=== PATIENT | male | born 1945 | race Caucasian/White ===

== ENCOUNTER → 2024-03-15 09:39 | Outpatient (BNVA) | payer OTHER, SELFPAY | PROVIDERS: PCP Internal Medicine; Visit Provider Internal Medicine ==

== ENCOUNTER 2024-10-22 15:44 | Outpatient (AMB) | payer OTHER, SELFPAY ==
--- NOTE | 2024-10-22 15:46 | AM.OFFVISMDC ---
Intake Vital Signs 10/22/24 16:00 Height 5 ft 6 in Weight 135 lb BMI 21.8 BP 128/78 Blood Pressure Location Rt brachial Position Sitting Pulse 62 Pulse Source Pulse Oximeter Temp 98.7 F Temp Source Temporal Artery Scan Pulse Oximetry (%) 98 Oxygen Delivery Method Room Air Intake Visit Reasons: AWV Intake Note: Usman presents in the office today for his medicare wellness check in. 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 Blood pressure is well controlled. Follows with [facility] GERD: Stable on omeprazole BPH: On flomax 0.8mg daily. Viagra 100mg daily Insomnia: Doing well on prn zolpidem. has advancing dementia. Is feeling down, low motivation and difficulty concentrating at time Macular degeneration-Goes every four weeks for shots Some hearing loss[facility] reviewed Care team reviewed Independent ADLS Positive PHQ9 ROS see HPI PHYSICAL EXAM: GENERAL: Alert and oriented x 3. NAD EYES: EOMI. Anicteric. HENT: Moist mucous membranes. No scleral icterus. No cervical lymphadenopathy. LUNGS: Clear to auscultation bilaterally. CARDIOVASCULAR: Regular rate and rhythm. No murmur. No JVD. ABDOMEN: Soft, non-tender +bs EXTREMITIES: No edema. Non-tender. SKIN: No rashes or lesions. Warm. NEUROLOGIC: No focal neurological deficits. CN II-XII grossly intact PSYCHIATRIC: Cooperative. Appropriate mood and affect [facility] Medical History CAD S/P percutaneous coronary angioplasty Myocardial infarction Sinusitis Stable angina Macular degeneration PUD (peptic ulcer disease) History of BPH GERD (gastroesophageal reflux disease) GIB (gastrointestinal bleeding) Ex-cigarette smoker Diverticulitis of sigmoid colon Coronary atherosclerosis of wrangell coronary artery H/O degenerative disc disease Benign essential hypertension Surgical History H/O tooth extraction Hx of colonoscopy Family History Mother Lung cancer Smoker Father Stroke Smoker Sister Cancer, metastatic Maternal Grandmother Diabetes Social History Housing: House Alcohol intake: never Patient Tobacco Use Status: Former Tobacco user Cigarette Packs Per Day: 1 Years Smoked: 10 e-Cigarette/Vaping Use: Never Used Second Hand Smoke Exposure: No service: Yes Current occupational status: retired Cognitive needs: No Hearing needs: No Vision needs: Yes (macular degeneration) Questionnaire Medicare Wellness Checkup What is your age?: 79 or older What gender do you identify with?: male During the past 4 weeks, how much have you been bothered by emotional problems such as feeling anxious, depressed, irritable, sad or downhearted, and blue?: slightly During the past 4 weeks, has your physical & emotional health limited your social activities with family, friends, neighbors, or groups?: not at all During the past 4 weeks, how much bodily pain have you generally had?: very mild pain During the past 4 weeks, was someone available to help you if you needed & wanted help?: yes, as much as I wanted During the past 4 weeks, what was the hardest physical activity you could do for at least 2 minutes?: moderate Can you get to places out of walking distance without help? (For eg., can you travel alone on buses, taxis or drive your car?): Yes Can you go shopping for groceries or clothes without someone's help?: Yes Can you prepare your own meals?: Yes Can you do your housework without help?: Yes Because of any health problems, do you need the help of another person with your personal care needs such as eating, bathing, dressing or getting around the house?: Yes Can you handle your own money without help?: Yes During the past 4 weeks, how would you rate your health in general?: good During the past 4 weeks how have things been going for you?: good & bad parts about equal Are you having difficulties driving your car?: no Do you always fasten your seat belt when you are in a car?: yes, usually During past 4 weeks, have you been bothered by the following: never: Falling or dizzy when standing up, Trouble eating well? and Problems using the telephone?, sometimes: Teeth or denture problems? and Tiredness or fatigue? and often: Sexual problems? Have you fallen 2 or more times in the past year?: No Are you afraid of falling?: No Are you a smoker?: no During the past 4 weeks, how many drinks of wine, beer, or other alcoholic beverages did you have?: no alcohol at all Do you exercise for about 20 minutes 3 or more times a week?: yes, some of the time Have you been given information to help with the following?: yes: Keeping track of your medications? and no: Hazards in your house that might hurt you? How often do you have trouble taking medicines the way you have been told to take them?: I always take medicine as prescribed How confident are you that you can control & manage most of your health problems?: somewhat confident What is your race?: White Mini Mental State Exam (MMSE) Orientation What is the (year) (season) (date) (day) (month)?: year, season, date, day and month Where are we (state) (county) (town or city) (hospital) (floor)?: state, county, town or city, hospital/clinic and floor Registration Name of 3 unrelated objects clearly and slowly, then ask patient to repeat all 3 of them. (1st repeat determines score. Make sure they can repeat all three): object 1, object 2 and object 3 Attention & Calculation (CHOOSE ONE) Ask pt to begin with 100 & count backward by 7. Stop after 5 repeats. If pt cannot ask them to spell the word WORLD backward.: 93, 86, 79, 72 and 65 Spell WORLD backwards (DLROW): 5 letters Recall Ask patient to repeat the 3 items from question #3.: object 1, object 2 and object 3 Language Show patient a wristwatch & ask what it is. Repeat for pencil.: watch Ask the patient to repeat the phrase 'No ifs, ands, or buts' after you.: correct Ask the patient to 'take a piece of paper with their right hand' 'fold paper in half' 'place paper on floor': take paper in right hand, fold paper in half and place paper on floor Print the sentence 'CLOSE YOUR EYES' on a piece. If patient actually closes eyes then score.: followed written direction Give patient a blank piece of paper & ask to write a sentence. Score if it contains a noun & verb.: sentence contains subject and verb Score Score: 33 Activity of Daily Living Bathing - sponge bath, tub bath or shower: receives no assistance (gets in/out by self, if usual bathing means Dressing - getting clothes from closets & drawers, including inner/outer garments & fasteners.: gets clothes & gets completely dressed without help Toileting - going to the 'toilet room' for urine/bowel elimination & cleaning self/arranging clothes: goes to toilet room, cleans self, arranges clothes without help Transfer: moves in & out of bed and chair without help (may use support object) Continence: controls urination/bowel movements completely by self Feeding: feeds self without help Total Score: 0 Information obtained from: patient Using telephone: independent Traveling: independent Shopping: independent Preparing meals: independent Housework: independent Taking medicine: independent Managing money: independent PHQ-9 Over the last 2 weeks, how often have you been bothered by any of the following problems? 1. Little interest or pleasure in doing things: several days 2. Feeling down, depressed, or hopeless: several days 3. Trouble falling or staying asleep, or sleeping too much: nearly every day 4. Feeling tired or having little energy: several days 5. Poor appetite or overeating: not at all 6. Feeling bad about yourself - or that you are a failure or have let yourself or your family down: not at all 7. Trouble concentrating on things, such as reading the newspaper or watching television: not at all 8. Moving or speaking so slowly that other people could have noticed. Or the opposite - being so fidgety or restless that you have been moving around a lot more than usual: not at all 9. Thoughts that you would be better off or of hurting yourself in some way: not at all Total score: 6 Depression Screening Interpretation: Positive Depression Screening Follow-up: New Medication prescribed Depression Screening Done: Yes 07860 - PHQ-9 Billing: Yes Source: Developed by Drs. Joshua Cheney, Samara Rodrate, Akil Marie and colleagues, with an educational carter from [employer]. Physical Exam Vital Signs: Last Vital Signs Temp 98.7 F 10/22/24 16:00 Pulse 62 10/22/24 16:00 BP 128/78 10/22/24 16:00 Pulse Ox 98 10/22/24 16:00 Oxygen Delivery Method Room Air 10/22/24 16:00 BMI result Body Mass Index 21.8 Assessment & Plan Assessment & Plan (1) Medicare annual wellness visit, subsequent: Code(s): Z00.00 - Encounter for general adult medical examination without abnormal findings (2) Prediabetes: Code(s): R73.03 - Prediabetes (3) CAD S/P percutaneous coronary angioplasty: Code(s): I25.10 - Atherosclerotic heart disease of wrangell coronary artery without angina pectoris; Z98.61 - Coronary angioplasty status (4) Depression: Code(s): F32.A - Depression, unspecified Qualifiers: Depression Type: major depressive disorder Major depression recurrence: recurrent Active/Remission status: currently active Major depression episode severity: mild Qualified Code(s): F33.0 - Major depressive disorder, recurrent, mild Plan MWV Interval history reviewed Independent +depression. Start wellbutrin 150mg daily. Continue medicine prn sleep Orders: Orders Comprehensive Met. Panel Today F41.9 - Anxiety disorder, unspecified, I25.10 - Atherosclerotic heart disease of wrangell coronary artery without angina pectoris, R73.03 - Prediabetes, Z12.5 - Encounter for screening for malignant neoplasm of prostate, Z98.61 - Coronary angioplasty status Vitamin B12 and Folate Today F41.9 - Anxiety disorder, unspecified, I25.10 - Atherosclerotic heart disease of wrangell coronary artery without angina pectoris, R73.03 - Prediabetes, Z12.5 - Encounter for screening for malignant neoplasm of prostate, Z98.61 - Coronary angioplasty status Hemoglobin A1c Today R73.03 - Prediabetes TSH reflex Free T4 Today R53.83 - Other fatigue LDL Cholesterol Direct Today I25.10 - Atherosclerotic heart disease of wrangell coronary artery without angina pectoris, Z98.61 - Coronary angioplasty status Medications: New bupropion HCl XL (Wellbutrin XL) 150 mg PO QAM 90 tabs 3RF Quality Reporting (2019) Depression/Bipolar (159/160/161/177) PHQ-9: Total score: 6 Coding Level of Care Code Medicare Subsequent (G0439) Diagnoses Medicare annual wellness visit, subsequent Z00.00 Prediabetes R73.03 CAD S/P percutaneous coronary angioplasty I25.10; Z98.61 Mild episode of recurrent major depressive disorder F33.0 Depression Type: major depressive disorder Major depression recurrence: recurrent Active/Remission status: currently active Major depression episode severity: mild Additional Codes PHQ-9 - 26976 - PHQ-9 Billing: Yes ([id number]) Advance Care Planning Advance Care Planning discussion: Declined forms Forms completed: None
[2024-10-22 16:00] VITALS: BP 128/78; PULSE 62; TEMP 37.1; O2SAT 98; BMI 21.8
== END 2024-10-22 16:35 | disposition home or self-care (01) ==
PROVIDERS: PCP Internal Medicine; Visit Provider Internal Medicine
DX: Z00.00 Encounter for general adult medical examination without abnormal findings (principal); R73.03 Prediabetes; I25.10 Atherosclerotic heart disease of native coronary artery without angina pectoris; Z98.61 Coronary angioplasty status; F33.0 Major depressive disorder, recurrent, mild

== ENCOUNTER → 2024-10-22 15:44 | Outpatient (BNVA) | payer OTHER, SELFPAY | PROVIDERS: PCP Internal Medicine; Visit Provider Internal Medicine | DX: Z00.00 Encounter for general adult medical examination without abnormal findings (principal); I25.10 Atherosclerotic heart disease of native coronary artery without angina pectoris; F33.0 Major depressive disorder, recurrent, mild; R73.03 Prediabetes; Z98.61 Coronary angioplasty status | CPT/HCPCS: 96127 ==

== ENCOUNTER 2024-10-23 08:05 | Outpatient (REF) | payer OTHER, SELFPAY ==
[2024-10-23 11:48] LABS: Estimated Average Glucose 114 mg/dL; Hemoglobin A1C 140.6465 umol/L; Hemoglobin A1c % 5.6 % (<6.0)
[2024-10-23 11:55] LABS: Alanine Aminotransferase 28 U/L (0-40); Albumin Level 4.1 g/dL (3.5-5.0); Alkaline Phosphatase 81 U/L (39-117); Anion Gap 10 (12-20); Aspartate Amino Transferase 36 U/L (5-37); Bilirubin Total 0.7 mg/dL (0.0-1.0); Blood Urea Nitrogen 32 mg/dL (9-16); Calcium 9.2 mg/dL (8.4-10.2); Carbon Dioxide 26 mmol/L (22-29); Chloride 109 mmol/L (96-108); Estimated Glomerular Filt Rate 46; Glucose Random 90 mg/dL (60-115); Sodium 141 mmol/L (135-145); Total Protein 6.7 g/dL (6.5-8.0)
[2024-10-23 12:14] LABS: TSH reflex Free T4 0.66 uIU/mL (0.32-4.0)
[2024-10-23 12:20] LABS: Folate 14.2 ng/mL (> or = 4.0); Vitamin B12 624 pg/mL (200-900)
[2024-10-24 08:14] LABS: LDL Cholesterol Direct 71 mg/dL (<100)
== END 2024-10-23 08:06 | disposition home or self-care (01) ==
LOC: HO.WFDLDS 08:05
PROVIDERS: Visit Provider Internal Medicine
DX: R73.03 Prediabetes (principal); F41.9 Anxiety disorder, unspecified; Z12.5 Encounter for screening for malignant neoplasm of prostate; I25.10 Atherosclerotic heart disease of native coronary artery without angina pectoris; Z98.61 Coronary angioplasty status; R53.83 Other fatigue
CPT/HCPCS: 36415; 80053; 82607; 82746; 83036; 83721; 84443

== ENCOUNTER 2025-01-06 13:33 | Outpatient (AMB) | payer OTHER, SELFPAY ==
--- OUTSIDE RECORDS SUMMARY | 2024-12-13 08:21 | XMS_ITS | Continuity of Care Document ---
Author Name [facility] Organization [facility] Care Team Providers Care Child Care Center Administrator Name Role Phone [facility] Unavailable Unavailable Problems Combined list of problems from Department of Defense and Veterans Affairs facilities. It does not include entries that were removed or entered in error. Problem Status Onset Date Problem Type Date of Resolution Comments Source Cervicalgia Active Condition [facility] Chronic kidney disease stage 3 Active Condition [facility] Coronary arteriosclerosis Active Condition [facility] Diaphragmatic hernia Active Condition [facility] Diverticulosis of colon without diverticulitis Active Condition [facility]rectile dysfunction Active [facility] Gastroesophageal reflux disease Active Condition [facility] Hyperlipidemia Active [facility] Hypertension Active Condition [facility] Insomnia Active Condition [facility] Prediabetes Active Condition [facility] Rosacea Active Condition [facility] Medications Combined list of outpatient medications from Department of Defense and Veterans Affairs facilities.Medications provided include 1) outpatient medications from the last 15 months, and 2) patient-reported medications. Medication Details Route Status Patient Instructions Prescription Expires Prescription Number Last Dispense Date Ordering Provider Order Date Order Qty Source ASPIRIN 81MG TAB,EC TAKE ONE TABLET BY MOUTH ONCE DAILY ORAL ACTIVE Kecia VILLANUEVA 2020 [facility] AZELAIC ACID 20% CREAM,TOP APPLY A SMALL AMOUNT TOPICALL Y ONCE DAILY TOPICA Kecia CRAMER 2020 [facility] BETAMETHASO NE DIPROPIONAT E 0.05% AUGMENTED CREAM APPLY A DIRECTED TOPICALL Y PRN TOPICA Blas VILLANUEVA,E ELLE2020 [facility] CARVEDILOL 6.25MG TAB TAKE ONE TABLET BY MOUTH TWICE DAILY ORAL ACTIVE VILLANUEVA,E ELLE 2020 [facility] CLOTRIMAZOL E 1% CREAM,TOP APPLY A THIN LAYER TOPICALL Y PRN TOPICA L ACTIVE RICH,E ELLE2020 [facility] FISH OIL CAP,ORAL TAKE 1200MG BY MOUTH ONCE DAILY ORAL ACTIVE VILLANUEVA,E ELLE2020 [facility] HYDROXYZINE HCL 25MG TAB TAKE ONE TABLET BY MOUTH PRN ORAL ACTIVE RICH,E ELLE2020 [facility] LOSARTAN POTASSIUM 100MG TAB TAKE ONE TABLET BY MOUTH ONCE DAILY ORAL ACTIVE RICH,E ELLE2020 [facility] LUTEIN CAP/TAB TAKE 20MG BY MOUTH ONCE DAILY ORAL ACTIVE VILLANUEVA,E ELLE2020 [facility] METRONIDAZO LE 0.75% CREAM,TOP APPLY A THIN LAYER TOPICALL Y ONCE DAILY TOPICA L ACTIVE RICH,E ELLE2020 [facility] MULTIVITAMI NS W/MINERALS TAB TAKE ONE TABLET BY MOUTH ONCE DAILY ORAL ACTIVE RICH,E ELLE2020 [facility] NITROGLYCER IN 0.4MG TAB,SUBLING UAL DISSOLVE UNDER THE TONGUE EVERY 5 MINUTES NEEDED SUBLIN GUAL ACTIVE RICH,E ELLE2020 [facility] OMEPRAZOLE 20MG CAP,EC TAKE 1 CAPSULE BY MOUTH EVERY MORNING 30 MINUTES BEFORE BREAKFAS T ORAL ACTIVE RICH,E ELLE2020 [facility] ROSUVASTATI N CA 20MG TAB TAKE ONE-HALF TABLET BY MOUTH ONCE DAILY ORAL ACTIVE RICH,E ELLE2020 [facility] SILDENAFIL CITRATE 100MG TAB TAKE ONE TABLET BY MOUTH PRN ORAL ACTIVE [facility] TAMSULOSIN HCL 0.4MG CAP TAKE 2 CAPSULES BY MOUTH ONCE DAILY ORAL ACTIVE Kecia VILLANUEVA 2020 [facility] ZOLPIDEM TARTRATE 5MG TAB TAKE ONE TABLET BY MOUTH AT BEDTIME NEEDED ORAL ACTIVE Kecia VILLANUEVA 2020 [facility] Allergies, Adverse Reactions, Alerts Combined list of allergies from [facility] and [facility] facilities. It does not include entries that were removed or entered in error. Substance Category Reaction Severity Reaction type Status Date Reported Comments Source BACTRIM Propensity to adverse reactions to drug (finding) Eruption active 1 [facility] PLAVIX Propensity to adverse reactions to drug (finding) Eruption active 1 [facility] Immunizations Combined list of available immunizations from the Department of [facility] and [facility] facilities. Immunization Series Date Given Administered By Site Reaction Lot Number CVX Code Drug Forestry Aid Status Comments Source INFLUENZA VACCINE, QUADRIVALENT, ADJUVANTED 2020 [facility] COVID-19 (MODERNA), MRNA, LNP-S, PF, 100 MCG/0.5ML DOSE OR 50 MCG/0.25ML DOSE 3 2020 207 [facility] COVID-19 (PFIZER), MRNA, LNP-S, PF, 30 MCG/0.3 ML DOSE 2 2020 208 complet [facility] COVID-19 (PFIZER), MRNA, LNP-S, PF, 30 MCG/0.3 ML DOSE 1 2020 208 complet ed [facility] Encounters Combined list of: 1) Encounters from Department of Veterans Affairs facilities going backup to the last 18 months, not all VA inpatient encounters are included; 2) Encounters from the Department of [facility] facilities going backup to 280 months. Location Location Details Encounter Type Encounter Number Reason For Visit Attending Provider ADM Date DC Date Status [facility] Outpatient Encounter [id number] 12[facility]13 [facility] [employer] [facility] Social History Combined list of available smoking, tobacco, and other social history from Department of Defense and Veterans Affairs facilities. Social History Type Response Date Comment Sour e Tobacco smoking status NHIS NE-TOBACCO FORMER USER [facility] History of tobacco use NE-TOBACCO QUIT 15 YRS OR MORE 02/10/2021 [facility] [employer] [facility]
--- NOTE | 2025-01-06 13:37 | A.OFFPC_ITS ---
Vital Signs 01/06/25 13:44 Height 5 ft 6 in Weight 136 lb 8 oz BMI 22.0 BP 102/64 Blood Pressure Location Lt brachial Position Sitting Respiration 14 Pulse 66 Pulse Source Pulse Oximeter Temp 97.8 F Temp Source Oral Pulse Oximetry (%) 97 Oxygen Delivery Method Room Air Intake Visit Reasons: Unexplained Bruising Intake Note: Unexplained bruising. Was in ER 10/23/24 for stent placement. Went back last Monday for another stent. ER switched the Rosuvastatin to 20 mg daily, pt needs a new prescription. 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: No Allergies clopidogrel (From PLAVIX) Allergy (Intermediate, Verified 01/06/25 13:40) RASH sulfamethoxazole (From BACTRIM) Allergy (Intermediate, Verified 01/06/25 13:40) RASH trimethoprim (From BACTRIM) Allergy (Intermediate, Verified 01/06/25 13:40) RASH Tobacco use date assessed: 01/06/25 Fall risk assessment: No Falls in past year Last assessed Fall Risk: 01/06/25 Dental Screening Dental Screen Date: 01/06/25 Did you have a dental visit in the last 12 months?: Yes Did you have a dental problem in the last 6 months where you did not have access to dental care?: No Was dental information given to patient?: Patient has dentist HPI HPI Comments History of Present Illness Details The patient is an 79 year old male with a past medical history of CAD s/p status post MA with PCI with stent to RCA 1998 & 2008, diabetes, htn, hld, GERD, PUD, low back pain, anxiety, PIN for acute visit Notes increased, easy bruising for the past 4 months. Notes this predated his stent placement and the addition of brilinta. Mostly arms bilateral. Has been developing dark raised reddish purple lesions. No spontaneous nose bleeds, hematuria, gum bleeding. Denies vitamin E, ginko. Denies excessive fatigue, night sweats, LN. CV: On crestor 10mg daily, aspirin 81mg daily, brillinta, losartan, coreg 6.25mg twice daily. Blood pressure is well controlled. Follows with [facility].Recent stent placement now on brilinta x one year with ASA. GERD: Stable on omeprazole BPH: On flomax 0.8mg daily. Viagra 100mg daily Insomnia: Doing well on prn zolpidem. has advancing dementia. Is feeling down, low motivation and difficulty concentrating at time Macular degeneration-Goes every four weeks for shots Some [facility] loss[facility] HPI PHYSICAL EXAM: GENERAL: Alert and oriented x 3. NAD EYES: EOMI. Anicteric. HENT: Moist mucous membranes. No scleral icterus. No cervical lymphadenopathy. LUNGS: Clear to auscultation bilaterally. CARDIOVASCULAR: Regular rate and rhythm. No murmur. No JVD. ABDOMEN: Soft, non-tender +bs EXTREMITIES: Multiple non blanching purpura b/l arms, bruising. No edema. Non- tender. SKIN: see above NEUROLOGIC: No focal neurological deficits. CN II-XII grossly intact PSYCHIATRIC: Cooperative. Appropriate mood and affect [facility] Medical History [place] (acute kidney injury) CAD S/P percutaneous coronary angioplasty Myocardial infarction Sinusitis Stable angina Macular degeneration PUD (peptic ulcer disease) History of BPH GERD (gastroesophageal reflux disease) GIB (gastrointestinal bleeding) Ex-cigarette smoker Diverticulitis of sigmoid colon Coronary atherosclerosis of [place] coronary artery H/O degenerative disc disease Benign essential hypertension Surgical History H/O tooth extraction Hx of colonoscopy Family History Mother Lung cancer Smoker Father Stroke Smoker Sister Cancer, metastatic Maternal Grandmother Diabetes Social History Housing: House Alcohol intake: never Patient Tobacco Use Status: Former Tobacco user Cigarette Packs Per Day: 1 Years Smoked: 10 e-Cigarette/Vaping Use: Never Used Second Hand Smoke Exposure: No service: Yes Current occupational status: retired Cognitive needs: No Hearing needs: No Vision needs: Yes (macular degeneration) Questionnaire PHQ-9 Over the last 2 weeks, how often have you been bothered by any of the following problems? 1. Little interest or pleasure in doing things: not at all 2. Feeling down, depressed, or hopeless: not at all 3. Trouble falling or staying asleep, or sleeping too much: not at all 4. Feeling tired or having little energy: not at all 5. Poor appetite or overeating: not at all 6. Feeling bad about yourself - or that you are a failure or have let yourself or your family down: not at all 7. Trouble concentrating on things, such as reading the newspaper or watching television: not at all 8. Moving or speaking so slowly that other people could have noticed. Or the opposite - being so fidgety or restless that you have been moving around a lot more than usual: not at all 9. Thoughts that you would be better off or of hurting yourself in some way: not at all Total score: 0 Depression Screening Interpretation: Negative Depression Screening Done: Yes 42311 - PHQ-9 Billing: Yes Source: Developed by Drs. Joshua Cheney, Samara Rodarte, Akil Marie and colleagues, with an educational carter from [employer]. Thrive Questionnaire Date Thrive assessed: 10/15/24 I am a: Patient What is your living situation today?: I have a steady place to live Within the past 12 months, did the food you bought not last and you didn't have the money to get more?: Never true Within the past 12 months, did you worry whether your food would run out before you got money to buy more?: Never true Do you have trouble paying for medicines?: No Do you have trouble getting transportation to medical appointments?: No Do you have trouble paying your heating and electricity bill?: No Do you have trouble taking care of your child, family member or friend?: No Do you have trouble with day-to-day activities such as bathing, preparing meals, shopping, managing finances, etc.?: No Are you currently unemployed and looking for a job?: No Are you interested in more education?: Yes Please select the resources that you would like help with: None Currently or been in a relationship where the following occur: No concerns reported THRIVE Score: 0 AUDIT C Alcohol Use Questionnaire (AUDIT-C) 1. How often do you have a drink containing alcohol?: Never Total Score: 0 YEIMY-7 AMB Questionnaire YEIMY-7 Feeling nervous, anxious, or on edge: 1 = Several days Not being able to stop or control worryin = Several days Worrying too much about different things: 0 = Not at all Trouble relaxin = Several days Being so restless that it is hard to sit still: 0 = Not at all Becoming easily annoyed or irritable: 0 = Not at all Feeling afraid as if something awful might happen: 0 = Not at all Total YEIMY-7 score (0-4 normal; 5-9 mild; 10-14 moderate; 15-21 severe): 3 Source: Developed by Drs. Joshua Cheney, Samara Rodarte, Akil Marie and colleagues, with an educational carter from [employer]. Physical exam (Primary Care) Vital Signs: Last Vital Signs Temp 97.8 F 01/06/25 13:44 Pulse 66 01/06/25 13:44 Resp 14 01/06/25 13:44 BP 102/64 01/06/25 13:44 Pulse Ox 97 01/06/25 13:44 Oxygen Delivery Method Room Air 01/06/25 13:44 BMI result Body Mass Index 22.0 Tobacco/Smoking Status: Tobacco use Status Tobacco use date assessed 01/06/25 01/06/25 13:46 Patient Tobacco Use Status Former Tobacco user 01/06/25 13:38 e-Cigarette/Vaping Use Never Used 01/06/25 13:38 PHQ-9: PHQ-9 Score PHQ-9: Total score 0 01/06/25 14:03 Depression Screening Interpretation: Negative Thrive Assessment: Date of Thrive Assessment Date Thrive assessed 10/15/24 01/06/25 13:38 Currently or been in a relationship where the following occur: No concerns reported Coding Level of Care Code Est Pt Level 4 (97267) Complex EM visit Add On G2211 Diagnoses Abnormal bruising R23.3 Purpura D69.2 CAD S/P percutaneous coronary angioplasty I25.10; Z98.61 Additional Codes PHQ-9 - 92204 - PHQ-9 Billing: Yes ([id number]) Assessment & Plan Assessment & Plan (1) Abnormal bruising: Code(s): R23.3 - Spontaneous ecchymoses Category: Medical (2) Purpura: Code(s): D69.2 - Other nonthrombocytopenic purpura Category: Medical (3) CAD S/P percutaneous coronary angioplasty: Code(s): I25.10 - Atherosclerotic heart disease of [place] coronary artery without angina pectoris; Z98.61 - Coronary angioplasty status Category: Medical Plan 79 year old with purpura, bruising that worsened with but predated his initiation of brilinta Labs ordered. He is agreeable to having a lesion biopsied-referral placed. Orders: Orders Partial Thromboplastin Time Today D69.2 - Other nonthrombocytopenic purpura, R23.3 - Spontaneous ecchymoses Comprehensive Met. Panel Today D69.2 - Other nonthrombocytopenic purpura, R23.3 - Spontaneous ecchymoses Complete Blood Count Auto Diff Today D69.2 - Other nonthrombocytopenic purpura, R23.3 - Spontaneous ecchymoses Pathologist Review - CBC Today D69.2 - Other nonthrombocytopenic purpura, R23.3 - Spontaneous ecchymoses Prothrombin Time INR Today D69.2 - Other nonthrombocytopenic purpura, R23.3 - Spontaneous ecchymoses Fibrinogen Today D69.2 - Other nonthrombocytopenic purpura, R23.3 - Spontaneous ecchymoses ANCA Vasculitides Today D69.2 - Other nonthrombocytopenic purpura, I25.10 - Atherosclerotic heart disease of [place] coronary artery without angina pectoris, R23.3 - Spontaneous ecchymoses, Z98.61 - Coronary angioplasty status Referrals General Surgery Referral D69.2 - Other nonthrombocytopenic purpura Medications: New rosuvastatin 20 mg PO DAILY 90 tabs 3RF
[2025-01-06 13:44] VITALS: BP 102/64; PULSE 66; RESP 14; TEMP 36.6; O2SAT 97; BMI 22.0
--- OUTSIDE RECORDS SUMMARY | 2025-01-06 14:50 | XMS_ITS | Encounter Summary ---
Author Organization Located Within [facility] Address [address] [place] [address] Phone Care Team Providers Care Mill Stenciler Name Role Phone Skyla Salomon MD Primary Care Provider Encounter Details Date Type Department Care Team (Late st Contact Info) Description 11/07/2024 Procedure [facility] [address] [place] [address] Social History Tobacco Use Types Packs/Day Years Used Date Smoking Tobacco: Former Cigarettes 1 365 - 4197 Smokeless Tobacco: Never Alcohol Use Standard Drinks/Week Comments Not Currently 0 (1 standard drink = 0.6 oz pur e alcohol) Beer Education Answer Date Recorded Are you interested in more education? Not on francisco e 09/09/2022 Are you concerned about learning? Not on file 09/09/2022 No 09/09/2022 No 09/09/2022 Food Answer Date Recorded Within the past 6 months we worried whether our food would run out before we got money to buy more. Never True 11/07/2024 Within the past 6 months the food we bought just didn't last and we didn't have enough money to get more. Never True Residential Stability Answer Date Recor ded What is your housing situation today? I have ulises kumar 11/07/2024 How many times have you move d in the past 12 months? Zero (I did not move) 11/07/2024 Paying for Meds Answer Date Recorded Do you have trouble paying for medicines? No 11/07/2024 Paying Utility Bills Answer Date Record ed Do you have trouble paying your heating or elect ricity bill? No 11/07/2024 Transportation Answer Date Recorded Has the lack of transportati on kept you from medical appointments or from getting medications? No 11/07/2024 Digital Access Answer Date Recorded No 11/07/2024 Yes 11/07/2024 Do you have reliable internet access at home? Ye s 11/07/2024 Do you have a device (e.g., phone, tablet, computer) with a working camera? Yes 11/07/2024 Intimate Partner Violence Answer Date R ecorded Are you denied basic needs s uch as food, clothing, or medical care? No 11/07/2024 In the past 12 months have y ou been in a relationship with a person who hurts, threatens, or tries to control you? No 11/07/2024 Are you denied basic needs s uch as food, clothing, or medical care? No 11/07/2024 In the past 12 months have y ou been in a relationship with a person who hurts, threatens, or tries to control you? No 11/07/2024 Sex and Gender Information Value Date Recorded Sex Assigned at Not on file Legal Sex Male 10:09 PM EDT Gender Identity Not on file Sexual Orientation Not on file documented as of this encounter Functional Status * Calculated C-SSRS Risk Score (Lifetime/Recent) Answer Date of Assessment Author No Risk Indicated 11/07/2024 6:09 PM EDT Erika Zuñiga RN * Wilkes Suicide Severity Rating Scale (Screener/Recent Self-Report) Question Answer Date of Assessment Author 1. Wish to be (Past 1 Month) No 11/07/2024 6:09 PM EDT Erika Zuñiga RN 2. Non-Specific Active Suici beto Thoughts (Past 1 Month) No 11/07/2024 6:09 PM EDT Erika Zuñiga, RN 6. Suicidal Behavior (Lifetime) No 6:09 PM EDT Erika Zuñiga, FRANCIS documented as of this encounter Plan of Treatment Upcoming Encounters Date Type Department Care Team (Late st Contact Info) Description 01/28/2025 10:30 AM EDT Office Visit [facility] [address], [address] [place] [address] Zohra Black PA-C [address] [place] [id number] [email or web address] 2025 8:00 AM EDT Office Visit [facility] [address] [place] [address] [address] Floor, [address] [place] [address] Zohra Black PA-C [address] [place] [id number] documented as of this encounter Visit Diagnoses Not on filedocumented in this encounter Care Teams Mill Stenciler Relationship Specialty Start Date End Date Skyla Salomon MD PCP - General Internal Medicine 06/17/22 documented as of this encounter Additional Source Comments The information contained in this document represents components of the legal health record. It is not the complete legal health record.Located Within [facility]
--- OUTSIDE RECORDS SUMMARY | 2025-01-06 14:51 | XMS_ITS ---
Author Name [facility] Organization Unknown Care Team Organization Name Specialty Phone Email Start Date End Da te [facility] Debi Fuentes Primary [facility] 03/22/2022 4
--- OUTSIDE RECORDS SUMMARY | 2025-01-06 14:51 | XMS_ITS | Clinical Summary ---
Author Organization [facility] Address [address] [place] [address] Phone Care Team Providers Care Juice Bar Team Member Name Role Phone Skyla Salomon MD Primary Care Provider [phone] Allergies Active Allergy Reactions Criticality Noted Date Comments Sulfamethoxazole-Trimethoprim Rash Low 2016 Clopidogrel Rash Low 11/21/2016 Sulfa (Sulfonamide Antibiotics) 11/12 Medications omeprazole (PRILOSEC) 10 MG capsule Take 10 mg by mouth as needed. 1 capsule Orally Once a day Active SILDENAFIL CITRATE (VIAGRA ORAL) as needed Active Medication-Free Text multivitamin Active carvedilol (COREG) 6.25 MG tablet Take 1 tablet by mouth 2 (two) times a day with meals. Active aspirin 81 MG EC tablet Take 1 tablet by mouth daily. Active nitroglycerin (NITROSTAT) 0.4 MG SL tablet 1 tablet under the tongue and allow to dissolve as needed Sublingual Active hydrOXYzine (ATARAX) 25 MG tablet Take 25 mg by mouth as directed. Take 1-2 tablets as needed Active vitamins A,C,E-zinc-joe er (PRESERVISION AREDS) [id number] Cap Take 1 capsule by mouth 2 (two) times a day with meals. Active losartan (COZAAR) 100 MG tabletIndicatio ns:Medication refill Take 1 tablet (100 mg total) by mouth daily. 90 tablet 3 0 Active rosuvastatin (CRESTOR) 10 MG tablet Take 10 mg by mouth. 1 Active tamsulosin (FLOMAX) 0.4 mg Cap Take 0.8 mg by mouth. 1 Active lutein 20 mg Tab TAKE 20MG BY MOUTH ONCE DAILY 1 Active metroNIDAZOLE (METROGEL) 1 % gel Apply topically as needed. Active clotrimazole-be tamethasone (LOTRISONE) cream Apply topically 2 (two) times a day. Active Medication-Free Text Vit a 2400mcg Active Medication-Free Text Vit c 500 mg Active buPROPion (WELLBUTRIN XL) 150 MG ER 24 hr tablet Take 150 mg by mouth every morning. 5 Active ticagrelor (BRILINTA) 90 mg Tab Take 90 mg by mouth 2 (two) times a day. Active Active Problems Problem Noted Date Diagnosed Date Nonrheumatic mitral valve regurgitation 11/29/19 25 Assessment & Plan (11/28/2024 9:55 AM EDT): Most recent echo reveals mild MR. Continue serial echoes. Atypical chest pain 11/07/2024 Chest pain 11/07/2024 Assessment & Plan (11/08/2024 1:15 PM EDT): -Patient has had multiple episodes of hypotension following exertion and associated with midsternal chest pressure -Troponin flat 29, 28 -No acute ischemic findings on EKG -Cardiology consulted, recommendation appreciated. -Continue aspirin, beta-los -Follow-up TTE -Follow-up stress test: per cardiology if it is normal and he continues with chest pain he will need diagnostic catheterization which can be done outpatient. Assessment & Plan (11/07/2024 9:51 PM EDT): -Patient has had multiple episodes of hypotension following exertion and associated with midsternal chest pressure -Troponin flat 29, 28 -No acute ischemic findings on EKG -Continue aspirin, statin, beta-los -Follow-up TTE -Follow-up stress test -Follow-up cardiology consult Essential hypertension 11/22/2017 Assessment & Plan (11/28/2024 9:52 AM EDT): BPs have been fluctuating. We added amlodipine earlier this year due to hypertension, he then became quite hypotensive so we stopped CCB. Will currently continue losartan 100 mg, carvedilol 6.25 mg twice daily. Home BPs range 90s to 120s systolic. Well-controlled in the office today. He is trying to more appropriately hydrate. Continue to monitor. Labs up-to-date. Assessment & Plan (11/08/2024 11:11 AM EDT): - Over the last several weeks patient had multiple episodes of hypotension with SBP in the 80s, his Norvasc was recently discontinued - Continue meds as above Assessment & Plan (11/07/2024 9:51 PM EDT): - Over the last several weeks patient had multiple episodes of hypotension with SBP in the 80s, his Norvasc was recently discontinued - Continue Coreg and losartan with holding parameters Assessment & Plan (10/31/2024 12:55 PM EDT): Blood pressures were mildly elevated in the office when I last saw patient at which time we added amlodipine 5 mg daily to his home carvedilol 6.25 mg twice daily (resting heart rate 50s) and losartan 100 mg daily. Soon thereafter, patient presented to the emergency room a few days ago with home reported blood pressures in the 80s and feeling overall weak. He left AMA without being seen. We will discontinue CCB at this time. He continues with some low blood pressures at home, see HPI, but they are much better. He is still having some of the feelings of weakness that comes over him. He is not hydrating so I have asked him to significantly increase this. We discussed lifestyle modifications in detail including limiting his sodium, increasing exercise, striving for stress reduction and good sleep. Recent labs reviewed. We are going to repeat a BMP in a few weeks to reassess his kidney function as his numbers in the ED were lower than his baseline. Continue home monitoring and will advise the office of any worrisome symptoms in the interim. Assessment & Plan (09/24/2024 3:56 PM EDT): Blood pressures were mildly elevated in the office when I last saw patient but his home numbers were well-controlled. However, patient follows up today for elevated home readings 150s systolic of recent. We discussed lifestyle modifications in detail including limiting his sodium, increasing exercise, striving for stress reduction and good sleep. Will continue carvedilol 6.25 mg twice daily (resting heart rate 50s) and losartan 100 mg daily and add amlodipine 5 mg daily today. Recent labs reviewed. Continue home monitoring and will advise the office if readings over 130/80. Patient politely declines a sooner follow-up than 01/2025 which is already scheduled with his president & ceo [employer]. Asked patient to follow-up sooner for any medication ADRs or high BPs. Patient states he has had a history of whitecoat hypertension. Assessment & Plan (08/08/2024 8:01 AM EDT): Blood pressure was mildly elevated in the office today but home readings are at goal with systolics 1 10-1 35 regularly. Continue carvedilol 6.25 mg twice daily (resting heart rate 50s) and losartan 100 mg daily. Recent labs from PCP requested. Lifestyle modifications discussed including increasing exercise, low-sodium diet, aiming for good sleep and stress reduction. Continue home monitoring and will advise the office if readings over 130/80. Patient states he has had a history of whitecoat hypertension. Assessment & Plan (02/09/2024 7:48 AM EDT): Blood pressure is well-controlled today at 120/62. He is on carvedilol 6.25 mg twice daily and losartan 100 mg daily which she will continue without change. Assessment & Plan (12/16/2019 8:47 AM EDT): Blood pressure in the office today was 148/78. Patient states that he does not check his blood pressure at home but he does own a blood pressure cuff so I encouraged him to start doing so. We also discussed his diet and exercise regimen which he says has not been great as it is very hot and his gym is closed. We discussed implementing a low-sodium diet and increasing his physical activity regimen. We are also going to increase his losartan from 50 mg to 100 mg. Assessment & Plan (11/22/2017 8:22 AM EDT): His blood pressure remains a bit elevated. I'm ago further on his losartan to 50 mg daily. Hyperlipidemia 11/22/2017 Assessment & Plan (11/28/2024 9:54 AM EDT): LDL goal less than 70. LDL 48, at goal on rosuvastatin 10 mg daily. Prior LFTs were normal. Assessment & Plan (10/31/2024 12:52 PM EDT): Most recent LDL 58, at goal on rosuvastatin 10 mg daily which he is tolerating well. LFTs WNL. Lifestyle modifications ongoing. Assessment & Plan (09/24/2024 2:19 PM EDT): Most recent LDL 58, at goal on rosuvastatin 10 mg daily which he is tolerating well. LFTs WNL. Lifestyle modifications ongoing. Assessment & Plan (08/08/2024 8:02 AM EDT): Most recent LDL 61, at goal on rosuvastatin 10 mg daily which he is tolerating well. Labs requested. Assessment & Plan (02/09/2024 7:49 AM EDT): PCP has been monitoring lipid panel. LDL goal less than 70 mg/dL. He will continue rosuvastatin 10 mg daily. Assessment & Plan (12/16/2019 8:31 AM EDT): Last lipid panel is from November 2018 which shows LDL at goal <70 at 51. Patient states that he will have all of his labs drawn in February for his primary care as they have been postponed due to Covid. He would prefer to have these labs drawn and sent to us to review his lipid panel. We will continue rosuvastatin 10 mg at this time. Assessment & Plan (11/22/2017 8:22 AM EDT): His lipids are well controlled on the rosuvastatin. His last LDL was around 70. 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 His stress testing has been normal in the past. More recently had placement of DANIELA to RCA ISR 11/11/2024 at [facility]. Recommendation was to consider staged PCI for the additional lesions pending renal function and symptoms after stenting the RCA again. He states that the chest discomfort that he was previously endorsing is now gone. He is however worried about the other lesions. He does not wish to start cardiac rehab until he knows the plan for a remaining intervention so we will schedule patient with his president & ceo [employer] in 2 weeks for cath talk to determine the plan for the alternate lesions of significance. BP with no room to uptitrate antianginals today. Continue aspirin lifelong. Ticagrelor 90 mg twice daily for at least 12 months post PCI. Continue statin, ARB, beta-los. EF is preserved. Has not used any sublingual nitro but he carries this with him. Continue to optimize cardiovascular risk factors. Follow-up in 2 weeks. Assessment & Plan (11/08/2024 1:15 PM EDT): - Patient with history of essential hypertension with self reported periods of hypotension, CAD, HLD, HX of inferior TN status post bare-metal stent placed to RCA in 2014 to the right coronary artery. Followed by Dr. Hill - Nuclear stress test done last year at [facility] was normal with normal EF -10/08 total cholesterol 109; HDL 42; LDL 48; triglycerides 97 -10/08 A1c 5.7 Plan: - Continue aspirin, beta-los, ARB, statin -Cardiology following Assessment & Plan (10/31/2024 12:56 PM EDT): History of inferior TN 2014 status post bare-metal stent to his RCA. He had an emergency room visit 07/2023 for chest pain at which time echo and nuclear stress test were reassuring. Today He endorses a somewhat atypical intermittent chest pressure, see HPI. We discussed updating nuclear stress testing, but shared decision to hold off on this time and follow-up in 1 month. If symptoms continue, update nuke. Has not used any sublingual nitro but he carries this with him. Continue aspirin lifelong. Continue statin and additional medical therapy. Continue to optimize cardiovascular risk factors. Assessment & Plan (09/24/2024 2:17 PM EDT): History of inferior TN 2014 status post bare-metal stent to his RCA. He had an emergency room visit 07/2023 for chest pain at which time echo and nuclear stress test were reassuring. Patient denies any recurrence of this symptom. He was exercising regularly but now has not been, recommend 30 minutes daily. He has had no angina. Has not used any sublingual nitro but he carries this with him. Continue aspirin lifelong. Continue statin and additional medical therapy. Continue to optimize cardiovascular risk factors. Follow-up 6 months. Assessment & Plan (08/08/2024 8:02 AM EDT): History of inferior TN 2014 status post bare-metal stent to his RCA. He had an emergency room visit 07/2023 for chest pain at which time echo and nuclear stress test were reassuring. Patient denies any recurrence of this symptom. He exercises regularly without any chest pain/pressure/dyspnea or exertional limitation. No angina. Has not used any sublingual nitro but he carries this with him. Continue aspirin lifelong. Continue statin and additional medical therapy. Continue to optimize cardiovascular risk factors. Follow-up 6 months. Assessment & Plan (02/09/2024 7:48 AM EDT): He had an inferior TN with stenting to his RCA in 2014. He continues to be asymptomatic at this time. He has not needed to use nitroglycerin. He did have a emergency room visit at [facility] in the distant past where he was prescribed isosorbide however he has never started this medication. He is on aspirin 81 mg daily, carvedilol 6.25 mg twice daily, losartan 100 mg daily, rosuvastatin 10 mg daily which she will continue without change. LDL goal less than 70 mg/dL. SBP goal less than 130/80. Will continue to optimize his cardiac risk factors. He is encouraged follow heart healthy diet and to exercise. Assessment & Plan (12/16/2019 8:49 AM EDT): Patient has a history of an inferior TN and stenting to his RCA in 2014. Today he states that he has not had any recurring chest pain or discomfort. He has not needed any sublingual nitroglycerin. He does have some bouts of shortness of breath that come on and resolve spontaneously, but do not last more than a few seconds. He should remain on aspirin lifelong. We will optimize cardiac risk factors and ensure his LDL is at goal. Assessment & Plan (11/22/2017 8:21 AM EDT): His a history of an inferior TN and stenting to his RCA in 2014. He has a small Q wave on his EKG but no real evidence of scar or ischemia on a nuclear stress test. He is preserved LV function. He should remain on aspirin lifelong and we will continue to optimize his cardiac risk factors. Encounters Date Type Department Care Team Description 12/18/2024 8:11 AM EDT - 12/18/2024 11:59 PM EDT Hospital Encounter [facility] Laboratory [address] [place] [address] Charlie Hill MD Discharge Disposition: Home or Self Care 12/16/2024 Telephone [facility] [place] [address], [address] [place] [address] Charlie Hill MD 12/11/2024 10:00 AM EDT Office Visit [place] [address] [facility] [address], [address] [place] [address] Charlie Hill MD Pure hypercholesterolemia (Primary Dx); Coronary artery disease involving miccosukee coronary artery of miccosukee heart without angina pectoris; Essential hypertension; Chest pain, unspecified type 12/11/2024 Orders Only [facility] [address], [address] [place] [address] Charlie Hill MD Coronary artery disease involving miccosukee coronary artery of miccosukee heart without angina pectoris (Primary Dx) 11/28/2024 9:00 AM EDT Office Visit [facility] [address], [address] [place] [address] Zohra Black PA-C Essential hypertension (Primary Dx); Pure hypercholesterolemia; Nonrheumatic mitral valve regurgitation 11/18/2024 8:05 AM EDT - 11/18/2024 11:59 PM EDT Hospital Encounter [facility] [address] [place] [address] Zohra Black PA-C Discharge Disposition: Home or Self Care 11/07/2024 5:35 PM EDT - 11/09/2024 7:00 PM EDT Hospital Encounter [facility] [address] [place] [address] Mart Mirza MD Arepally, Sandeep, MD Altman, Evan K, DO, MPH Lauren Black DO Discharge Disposition: Short Term Hospital 11/07/2024 Procedure Pass [facility] [address] [place] [address] 10/29/2024 2:30 PM EDT [facility] [address] [facility] [place] [address] Zohra Black PA-C Decreased GFR (Primary Dx); CAD in miccosukee artery; Pure hypercholesterolemia; Essential hypertension from Last 3 Months Immunizations Immunization Administration Dates Next Due Tdap 09/19/2019 Family History Medical History Relation Comments Stroke Father Cancer Mother Heart attack Mother Relation Status Comments Father Mother Social History Tobacco Use Types Packs/Day Years Used Date Smoking Tobacco: Former Cigarettes 1 958 - 1967 Smokeless Tobacco: Never Tobacco Cessation:Counseling Given: Not Answered Alcohol Use Standard Drinks/Week Comments Not Currently [...] your housing situation today? I have ulises sing 11/07/2024 How many times have you move [...] on file Sexual Orientation Not on file Last Filed Vital Signs Vital Sign Reading Time Taken Comments Blood Pressure 144/86 12/11/2024 9:32 AM EDT Pulse 74 12/11/2024 9:32 AM EDT Temperature 36.7 C (98.1 F) 11/09/2024 2:30 PM EDT Respiratory Rate 16 11/09/2024 2:30 PM EDT Oxygen Saturation 99% 12/11/2024 9:32 AM EDT Inhaled Oxygen Concentration - - Weight 59 kg (130 lb) 12/11/2024 9:32 AM EDT Height 165.1 cm (5' 5 ) 12/11/2024 9:32 AM EDT Body Mass Index 21.63 12/11/2024 9:32 AM EDT Plan of Treatment Upcoming Encounters Date Type Department Care Team (Late st Contact Info) Description 01/28/2025 10:30 AM EDT Office Visit [facility] [address], [address] [place] [address] Zohra Black PA-C [address] [place] [id number] [email or web address] 2025 8:00 AM EDT Office Visit [facility] [address], [address] [place] [address] Zohra Black PA-C [address] [place] [id number] Health Maintenance Due Date Last Done Comments DEPRESSION SCREENING 1957 ZOSTER VACCINES (1 of 2) 1994 RSV VACCINE (1 - 1-dose 75+ series) 2019 COVID-19 VACCINE ( season) 2024 07/11/2020, 06/18/2020 INFLUENZA VACCINE (#1) 2024 , 03/08/2018, 04/24/2017, Additional history exists BLOOD PRESSURE 06/13/2025 12/11/2024 SMOKING Hx and SMOKELESS TOBACCO SCREENING 12/11/2025 12/11/2024 CREATININE LEVEL 12/18/2025 12/18/2024, 11/2024, 11/08/2024, Additional history exists LIPID PANEL 12/18/2025 12/18/2024, 06/2 11/2024, 11/18/2020, Additional history exists POTASSIUM LEVEL 12/18/2025 12/18/2024, 07/0 11/2024, 11/08/2024, Additional history exists Adult Td,Tdap Booster 09/18/2029 09/19/2019 , 03/06/2012, 06/21/2000 PNEUMOCOCCAL VACCINES (50+ years) Completed 04/21/2016, 03/23/2015, 03/17/2005, Additional history exists HEPATITIS A VACCINES Aged Out No long er eligible based on patient's age to complete this topic HIB VACCINES Aged Out No longer eligi ble based on patient's age to complete this topic MENINGOCOCCAL VACCINES (ACWY) Aged Out No longer eligible based on patient's age to complete this topic MENINGOCOCCAL VACCINES (B) Aged Out N o longer eligible based on patient's age to complete this topic Medical Devices Not on file Procedures Procedure Name Priority Date/Time Associated Diagnosis Comments COMPREHENSIVE METABOLIC PANEL Routine 12/18/2024 8:16 AM EDT Pure hypercholesterolemia Coronary artery disease involving miccosukee coronary artery of miccosukee heart without angina pectoris Essential hypertension Chest pain, unspecified type LIPID PANEL Routine 12/18/2024 8:16 AM EDT Pure hypercholesterolemia CBC AND DIFFERENTIAL Routine 12/18/2024 8:16 AM EDT Coronary artery disease involving miccosukee coronary artery of miccosukee heart without angina pectoris PT-INR Routine 12/18/2024 8:16 AM EDT Coronary artery disease involving miccosukee coronary artery of miccosukee heart without angina pectoris BASIC METABOLIC PANEL Routine 11/18/2024 8:47 AM EDT Decreased GFR TTE COMPREHENSIVE Routine 11/08/2024 1:1 0 PM EDT Chest pain, unspecified type NC MYOCARDIAL PERFUSION PHARMACOLOGIC STRESS MULTIPLE Routine 11/08/2024 12:45 PM EDT Coronary artery disease involving miccosukee coronary artery of miccosukee heart, unspecified whether angina present NC100 (TECH ORDER ONLY) NC STRESS TEST WITH NUCLEAR IMAGING Routine 11/08/2024 12:15 PM EDT Coronary artery disease involving miccosukee coronary artery of miccosukee heart, unspecified whether angina present Chronic coronary microvascular dysfunction LIPID PANEL Routine 11/08/2024 6:27 AM EDT HEMOGLOBIN A1C Routine 11/08/2024 6:27 AM EDT CBC AND DIFFERENTIAL Routine 11/08/2024 6:27 AM EDT PHOSPHORUS Routine 11/08/2024 6:27 AM EDT MAGNESIUM Routine 11/08/2024 6:27 AM EDT BASIC METABOLIC PANEL Routine 11/08/2024 6:27 AM EDT TROPONIN STAT 11/07/2024 5:31 PM EDT TROPONIN STAT 11/07/2024 4:07 PM EDT BASIC METABOLIC PANEL STAT 11/07/2024 4:07 PM EDT CBC AND DIFFERENTIAL STAT 11/07/2024 4:07 PM EDT ECG 12-LEAD STAT 11/07/2024 3:51 PM EDT from Last 3 Months Results * (ABNORMAL) Comprehensive metabolic panel (12/18/2024 8:16 AM EDT) SODIUM 140 133 - 146 mmol/L [facility] POTASSIUM 4.2 3.3 - 5.1 mmol/L [facility] Comment:Specimen slightly he molyzed, result may be falsely elevated. CHLORIDE 107 96 - 108 mmol/L [facility] CO2 22 21 - 35 mmol/L [facility] BUN 22(H) 6 - 19 mg/dL [facility] CREATININE 1.20 0.5 - 1.5 mg/dL [facility] GLUCOSE 88 70 - 99 mg/dL [facility] ALBUMIN 4.0 3.9 - 4.8 g/dL [facility] TOTAL PROTEIN 6.7 6.5 - 8.0 g/dL [facility] CALCIUM 9.5 8.4 - 10.3 mg/dL [facility] ALKALINE PHOSPHATASE 91 39 - 117 U/L [facility] TOTAL BILIRUBIN 0.7 0.0 - 1.2 mg/dL [facility] AST 41(H) 0 - 37 U/L [facility] ALT 52(H) 0 - 40 U/L [facility] GLOBULIN 2.7 1 - 4.8 g/dL [facility] EGFR 61 >59 mL/min/1.7 3m2 [facility] Comment:Estimated glomerular filtration rate calculated using the CKD-EPI refit equation. ANION GAP 15 10 - 20 mmol/L [facility] Blood 12/18/2024 8:16 AM EDT 12/18/2024 8:18 AM EDT Charlie Hill MD LAB BLOOD ORDERABLES Final Result [address] [address] * (ABNORMAL) PT-INR (12/18/2024 8:16 AM EDT) PT 13.8(H) 10.2 - 12.9 sec [facility] INR 1.1 0.9 - 1.1 [facility] Comment:Therapeutic range fo r oral Vitamin K antagonists: 2.0-3.5 Blood 12/18/2024 8:16 AM EDT 12/18/2024 8:18 AM EDT Charlie Hill MD LAB BLOOD ORDERABLES Final Result Performing Organization Address City/[facility]/ZIP Co de Phone Number [address] [address] * (ABNORMAL) CBC and differential (12/18/2024 8:16 AM EDT) Only the most recent of3 resultswithin the time period is included. WBC 5.26 4.00 - 11.00 K/uL [facility] RBC 4.29(L) 4.50 - 5.90 M/uL [facility] HGB 14.2 13.5 - 17.5 g/dL [facility] HCT 41.6 41.0 - 53.0 % [facility] PLT 168 150 - 450 K/uL [facility] MCV 97.0 80.0 - 100.0 fL [facility] MCH 33.1(H) 27.0 - 31.0 pg [facility] MCHC 34.1 32.0 - 36.0 g/dL [facility] RDW 13.0 11.5 - 14.5 % [facility] MPV 9.5 8.4 - 12.0 fL [facility] NRBC 0.00 0.00 /100 WBCs [facility] ABSOLUTE NRBC 0.00 0.00 K/uL [facility] DIFF METHOD Auto [facility] NEUTS 59.6 48.0 - 76.0 % [facility] LYMPHS 21.7 18.0 - 41.0 % [facility] MONOS 12.4(H) 4.0 - 11.0 % [facility] EOS 5.3(H) 0.0 - 5.0 % [facility] BASOS 0.8 0.0 - 1.5 % [facility] Granulocytes, immature (%) 0.2 0.0 - 0.9 % [facility] ABSOLUTE NEUTS 3.14 1.92 - 7.60 K/uL [facility] ABSOLUTE LYMPHS 1.14 0.72 - 4.10 K/uL [facility] ABSOLUTE MONOS 0.65 0.16 - 1.10 K/uL [facility] ABSOLUTE EOS 0.28 0.00 - 0.50 K/uL [facility] ABSOLUTE BASOS 0.04 0.00 - 0.15 K/uL [facility] Granulocytes, immature 0.01 0.00 - 0.09 K/uL [facility] Blood 12/18/2024 8:16 AM EDT 12/18/2024 8:18 AM EDT us Charlie Hill MD LAB BLOOD ORDERABLES Final Result Performing Organization Address City/State/[facility] Co de Phone Number [address] [address] * (ABNORMAL) Lipid panel (12/18/2024 8:16 AM EDT) Only the most recent of2 resultswithin the time period is included. HDL 47 mg/dL [facility] Comment: Interpretation <40 mg/dL: Low HDL cholesterol (major risk factor for CHD) Greater than or equal to 60 mg/dL: High HDL cholesterol ( negative risk factor for CHD) HDL - cholesterol is affected by a number of factors, e.g. smoking, excerise, hormones, sex and age. CHOLESTEROL 95 0 - 240 mg/dL [facility] TRIGLYCERIDES 85 30 - 160 mg/dL [facility] LDL 31(L) 50 - 129 mg/dL [facility] Comment: LDL levels in terms of risk for coronary heart disease: <100 mg/dL: Optimal 100-129 mg/dL: Near or above optimal 130-159 mg/dL: Borderline high 160-189 mg/dL: High >190 mg/dL: Very High CARDIAC RISK RATIO 2.0(L) 3.4 - 5.0 C [facility] Blood 12/18/2024 8:16 AM EDT 12/18/2024 8:18 AM EDT us Charlie Hill MD LAB BLOOD ORDERABLES Final Result Performing Organization Address City/[facility] [facility] Co de Phone Number [address] [phone] * (ABNORMAL) Basic metabolic panel (11/18/2024 8:47 AM EDT) Only the most recent of3 resultswithin the time period is included. SODIUM 141 133 - 146 mmol/L [facility] CHLORIDE 108 96 - 108 mmol/L [facility] POTASSIUM 4.0 3.3 - 5.1 mmol/L [facility] CO2 23 21 - 35 mmol/L [facility] BUN 29(H) 6 - 19 mg/dL [facility] CREATININE 1.20 0.5 - 1.5 mg/dL [facility] GLUCOSE 94 70 - 99 mg/dL [facility] CALCIUM 9.3 8.4 - 10.3 mg/dL [facility] EGFR 61 >59 mL/min/1.7 3m2 [facility] Comment:Estimated glomerular filtration rate calculated using the CKD-EPI refit equation. ANION GAP 14 10 - 20 mmol/L [facility] Blood 11/18/2024 8:47 AM EDT 11/18/2024 8:48 AM EDT us Zohra Black PA-C LAB BLOOD ORDERABLES Final R esult [facility] [address] [place] [address] * TTE COMPREHENSIVE (11/08/2024 1:10 PM EDT) Body Surface Area 1.75 m2 Height 168 cm Weight 66 kg Systolic BP 125 mmHg Diastolic BP 84 mmHg Left Atrium Dimension Anterior-Posterior 38 15 - 40 mm Interventricular Septum Thickness 12 6 - 11 mm Left Ventricle Internal Diameter End Diastole 40 42 - 58 mm Left Ventricle Internal Diameter End Systole 28 <40 mm Left Ventricular Outflow Tract Diameter 18.0 mm LVOT VTI REST 208.0 mm Left Ventricular Outflow Tract Velocity 1.0 m/s Left Ventricular Outflow Tract Gradient at Rest 4 mmHg Left Ventricular Posterior Wall Thickness 11 6 - 11 mm Left Ventricle Ea Lateral Wave Speed 11.6 cm/s Left Ventricle Ea Septal Wave Speed 5.2 cm/s Mitral Valve Deceleration Time 391 ms Ejection Fraction 57 50 - 75 Percent Aortic Valve Regurgitation Pressure Half Time 670 ms Aortic Valve Peak Velocity 1.3 m/s Aortic Valve Peak Gradient 7 mmHg Aortic Valve Mean Gradient 4 mmHg Aortic Valve Time Velocity Integral 271.0 mm Aortic Arch Diameter 29 mm Aortic Sinus Diameter 33 <40 mm Ascending Aorta Diameter 29 <36 mm Mitral Valve Area Pressure Half Time Eq 835.0 mm/s2 MV stenosis pressure 1/2 time 184 ms Left Ventricle A Wave Speed 81.6 cm/s Left Ventricle E Wave Speed 46.3 cm/s Mitral Valve Mean Gradient 1 mmHg Mitral Valve Peak Gradient 3 mmHg Mitral Valve Area Continuity Equation 1.70 cm2 Pulmonary Artery End Diastolic Velocity 0.8 m/s Right Ventricle Basal Diameter 26 25 - 41 mm Tricuspid Valve Peak Velocity 2.1 m/s Raw LV EF% 51 % MV E/E' Tissue Velocity Lateral 3.99 Relative Wall Thickness 0.55 0.22 - 0.42 Left Ventricle indexed to BSA 88.8 g/m2 MV E/A ratio 0.6 MV E/e' septal 8.90 Left Ventricle E/e' Average 6.4 Aortic Valve Prosthetic Peak Gradient 7 mmHg Aortic Valve Prosthetic Mean Gradient 4 mmHg Aortic Valve Sinus Index by BSA 19 mm/m2 Aorta Sinus Index by Height 1.96 cm/m Aorta Sinus CSA index by Height 5.09 cm2/m Ascending Aorta Index 17 mm/m2 Asc Aorta CSA Index by Height 3.93 cm2/m Mitral Valve Prosthetic Peak Gradient 3 mmHg Mitral Valve Prosthetic Mean Gradient 1 mmHg MV valve area p 1/2 method 1.2 cm2 Mitral Valve Area DT Method 53.4 cm2 Right Ventricle to Right Atrium Pressure Gradient 18 mmHg Right Ventricle Peak Systolic Pressure (Assuming RAP 10) 28 mmHg MGB CV ECHO TV RVSP (ASSUMING RAP OF 5) 23 mmHg RVSP (Exclusive of RAP) 18 mmHg MGB CV AV DIMENSIONLESS INDEX (PEAK) - STRESS ECHO DOBUT - REST 0.77 Ascending Aorta Index 17 mm Aortic Sinus Index 19 mm Ascending Aorta Diameter 17 mm Aortic Valve Sinus Index 1 19 20 - 32 mm AO ASC DIAM BSA INDEX 16.57 Echo E/Ea 8.90 Left Atrial Volume Index 17 16 - 34 mL/m2 Right Ventricle Peak Systolic Pressure 21 mmHg Right Ventricle TAPSE 18 >=17 mm Right Ventricle Pulse Doppler S Wave 11.7 >=9.5 cm/s Right Ventricle Mid Diameter 20 19 - 35 mm Right Ventricle Longitudinal Diameter 62 59 - 83 mm Left Atrial Volume 29 mL Left Atrial Volume Index by Height 17 mL/m Right Atrium Area 10 cm2 Right Atrium Area index 6 cm2/m2 Right Atrium Pressure Estimated 3 mmHg Pulmonary Artery End Diastolic Pressure 6 mmHg Anatomical Region Laterality Modality Heart Ultrasound Narrative 11/09/2024 8:20 AM EDT Images from the original result were not included. 1. The indication is chest pain. The estimated ejection fraction of the left ventricle is normal at 55 to 60%. Diastolic function is normal there is mild concentric LVH there are no regional wall motion abnormalities. 2. There is normal RV size and function. 3. There is a trileaflet aortic valve there is no evidence of aortic stenosis, the ascending aortic root is normal size. 4. Mild mitral and trace tricuspid insufficiency, the PA pressure is normal. 5. Normal pericardium and there is no prior echo available for comparison. Left Ventricle The left ventricle is normal in size. There is concentric hypertrophy. There is normal left ventricular systolic function. The LV ejection fraction is 57% (calculated via the single dimension method). LV diastolic function appears within normal limits for age. The e' septal wave velocity is 5.2 cm/s. The e' lateral wave velocity is 11.6 cm/s. The average E/e' ratio is 6.4. Right Ventricle The right ventricle is normal in size. The RV basal dimension is 26 mm. The RV mid dimension is 20 mm. The RV longitudinal dimension is 62 mm. There is normal right ventricular systolic function. TAPSE is 18 mm. RV S' wave is 11.7 cm/s. Left Atrium The left atrium is normal in size. The left atrial anterior-posterior dimension is 38 mm. The left atrial volume index by BSA is 17 mL/m2. There are normal flow patterns in the pulmonary vein. Right Atrium The right atrial area is 10 cm2. The IVC is suboptimally visualized. Mitral Valve There is thickening of both mitral leaflets. There is no mitral stenosis. There is mild mitral regurgitation. Tricuspid Valve The tricuspid valve appears normal. There is no tricuspid stenosis. There is trace tricuspid regurgitation. The RV systolic pressure was calculated at 21 mmHg (using TR peak velocity of 2.1 m/s and assuming an RA pressure of 3 mmHg). Normal pulmonary pressure. Aortic Valve The aortic valve is tricuspid. There is no aortic stenosis. There is trace aortic regurgitation. The visualized portions of the thoracic aorta appear normal in size. Pulmonic Valve The pulmonic valve appears normal. There is no pulmonic stenosis. There is trace pulmonic regurgitation. Pericardium There is no pericardial effusion. General Findings Technically adequate echocardiogram. Technique(s) used in the evaluation: Color flow Doppler and Spectral Doppler. The predominant rhythm during the study was sinus. Comparison Findings There are no prior studies for comparison. IAS/IVS The interatrial septum appears normal. us Lauren Recinos Namibian DO CV ECHO ORDERABLES Final Resu lt * NC Myocardial Perfusion Pharmacologic Stress Multiple (11/08/2024 12:45 PM EDT) Anatomical Region Laterality Modality Heart, Vascular Nuclear Medicine 11/08/2024 1:11 PM EDT Impressions 11/08/2024 1:16 PM EDT 1. Qualitative Findings: The myocardial perfusion images reveal no evidence of ischemia or infarction. Mild basal inferior/inferoseptal thinning is not clearly outside of normal limits and may be accounted for by diaphragmatic attenuation artifact. 2. Left ventricular ejection fraction: 68% 3. Stress EKG findings were interpreted by cardiology and are reported separately. Please refer to that report in Epic. Narrative 11/08/2024 1:16 PM EDT EXAM: NC MYOCARDIAL PERFUSION PHARMACOLOGIC STRESS MULTIPLE CLINICAL INDICATION: * CAD monitoring, CABG > 5yrs or PCI > 2 yrs. TECHNIQUE: According to standard departmental protocol, the patient was injected with mCi of TC-99M Sestamibi IV at rest and ungated SPECT myocardial images were obtained. Subsequently, a stress test was performed and mCi of TC-99M Sestamibi was injected at peak stress. After 30 to 60 minutes, gated SPECT images were obtained and assessed for myocardial perfusion and left ventricular function. Stress EKG findings were interpreted by cardiology and are reported separately. Please refer to that report in [facility]. COMPARISON: None. FINDINGS: Myocardial Perfusion Zone Defect/Change Basal Inferior Thinning. Regional Wall Motion: Normal regional left ventricular wall motion. Ventricular Size and Global Function: The left ventricular ejection fraction is normal. Normal left ventricular size. LV ejection fraction is 68 %. TID Stress 1.00 TID greater than 1.2-1.25 is generally considered abnormal. Incidental Findings: None Artifacts: Diaphragm Image Quality: Good. Procedure Note Gee Cassidy MD - 11/08/2024 EXAM: NC MYOCARDIAL PERFUSION PHARMACOLOGIC STRESS MULTIPLE CLINICAL INDICATION: * CAD monitoring, CABG > 5yrs or PCI > 2 yrs. TECHNIQUE: According to standard departmental protocol, the patient wasinjected with mCi of TC-99M Sestamibi IV at rest and ungated SPECTmyocardial images were obtained. Subsequently, a stress test was performedand mCi of TC-99M Sestamibi was injected at peak stress. After 30 to 60minutes, gated SPECT images were obtained and assessed for myocardialperfusion and left ventricular function. Stress EKG findings were interpreted by cardiology and are reportedseparately. Please refer to that report in [facility]. COMPARISON: None. FINDINGS: Myocardial Perfusion Zone Defect/Change Basal Inferior Thinning. Regional Wall Motion: Normal regional left ventricular wall motion. Ventricular Size and Global Function: The left ventricular ejectionfraction is normal. Normal left ventricular size. LV ejection fraction is68 %. TID Stress 1.00 TID greater than 1.2-1.25 is generally considered abnormal. Incidental Findings: None Artifacts: Diaphragm Image Quality: Good. IMPRESSION: 1. Qualitative Findings: The myocardial perfusion images reveal noevidence of ischemia or infarction. Mild basal inferior/inferoseptalthinning is not clearly outside of normal limits and may be accounted forby diaphragmatic attenuation artifact. 2. Left ventricular ejection fraction: 68% 3. Stress EKG findings were interpreted by cardiology and are reportedseparately. Please refer to that report in Epic. us Lauren A Namibian DO CV NM CARDIAC Final Result * NC Stress Result for Nuclear Stress Test (11/08/2024 12:15 PM EDT) Max Predicted Heart Rate 140 bpm [facility] Max BP Systolic 142 mmHg [facility] Max BP Diastolic 90 mmHg [facility] Max HR 114 BPM [facility] Resting HR 70 BPM [facility] Resting BP Systolic 114 mmHg [facility] Resting BP Diastolic 70 mmHg [facility] Peak METS 3.4 METS [facility] Peak HR 114 BPM [facility] Peak BP Systolic 100 mmHg [facility] Peak BP Diastolic 50 mmHg [facility] Anatomical Region Laterality Modality Heart Other 11/08/2024 11:3 1 AM EDT 11/08/2024 12:14 PM EDT Narrative 11/09/2024 8:05 AM EDT Impression: ECG portion of the stress test is read is negative for reversible ischemic changes following regadenoson and fusion. Await nuclear images. Stress Findings The resting heart rate was 70 BPM. The resting BP was 114/70 mmHg. A peak heart rate of 114 BPM was achieved. Peak BP was 100/50 mmHg. ECG Report: Testing performed as a pharmacologic study due to blunted chronotropic response to exercise while exercising on treadmill in the setting of beta-los therapy. 0.4 mg Regadenoson given IV push over 10 seconds as per protocol immediately followed by injection of Tc99m Sestamibi by [facility] medical doctor nuclear medicine. 1. EKG: Baseline EKG showed rhythm, RBBB. Following administration of Regadenoson there were no ECG changes meeting criteria for ischemia 2. SYMPTOMS: Following administration of regadenoson while still exercising on treadmill patient did develop 7/10 substernal chest discomfort, this was persistent even in seated recovery and ultimately resolved after administration of 75 mg IV aminophylline 3. PHYSIOLOGY: Resting HR was 70 bpm. After Lexiscan injection, HR 114 bpm. Blood pressure: 112/70 at rest, 130/70 following administration of Regadenoson , and 120/70 on discharge from stress lab. 4. ARRHYTHMIAS: Occasional isolated PVCs, very frequent PACs throughout testing Conclusion: ECG portion of nuclear stress test without ECG changes meeting criteria for ischemia. While on the treadmill and after administration of regadenoson patient did develop chest discomfort which was relieved after administration of aminophylline Nuclear images pending and will be reported separately. See attached stress report for full details. Miranda King NP with Dr. Larson Response to Stress The patient exercised for minutes and seconds, achieving 3.4 METS at peak exercise. Baseline blood pressure was 114/70 mmHg, and baseline heart rate was 70 bpm. Peak blood pressure was 100/50 mmHg. The patient achieved a peak heart rate of 114 bpm, which is% of their maximum predicted heart rate. Rate pressure product was [address]. Lauren A Namibian DO CV NM CARDIAC Final Result * Phosphorus (11/08/2024 6:27 AM EDT) PHOSPHORUS 3.9 2.7 - 4.5 mg/dL [facility] Blood 11/08/2024 6:27 AM EDT 11/08/2024 6:45 AM EDT Lauren A Namibian DO LAB BLOOD ORDERABLES Final Re sult Performing Organization Address [facility] Co de Phone Number [address] [phone] * Magnesium (11/08/2024 6:27 AM EDT) MAGNESIUM 2.1 1.6 - 2.6 mg/dL [facility] Blood 11/08/2024 6:27 AM EDT 11/08/2024 6:45 AM EDT Lauren A Namibian DO LAB BLOOD ORDERABLES Final Re sult Performing Organization Address [facility]/ZIP Co de Phone Number [address] [phone] * Hemoglobin A1c (11/08/2024 6:27 AM EDT) HEMOGLOBIN A1C 5.7 4.3 - 5.8 % [facility] 11/08/2024 6:27 AM EDT 11/08/2024 6:45 AM EDT us Lauren Black DO LAB BLOOD ORDERABLES Final Re sult Performing Organization Address City/[facility]/ZIP Co de Phone Number [address] [phone] * (ABNORMAL) Troponin (11/07/2024 5:31 PM EDT) Only the most recent of2 resultswithin the time period is included. Troponin-T, HS Gen5 28(H) 0 - 14 ng/L [facility] Blood 11/07/2024 5:31 PM EDT 11/07/2024 5:32 PM EDT us Thee Grossman MD LAB BLOOD ORDERABLES Fin al Result Performing Organization Address [facility] Co de Phone Number [address] [phone] * ECG 12-LEAD (11/07/2024 3:51 PM EDT) Ventricular Rate EKG/MIN 58 BPM [facility] Atrial Rate 58 BPM [facility] W[place] Interval 148 ms [facility] QRS Duration 128 ms [facility] QT Interval 456 ms [facility] QTC Interval 447 ms [facility] P [place] 25 degrees [facility] R Wave [place] -50 degrees [facility] T Wave [place] -22 degrees [facility] 11/07/2024 3:51 PM EDT 11/08/2024 7:18 AM EDT Narrative [facility] - 11/08/2024 7:18 AM EDT Sinus bradycardia with sinus arrhythmia Left axis deviation Right bundle branch block Inferior infarct , age undetermined Abnormal ECG When compared with ECG of 17-Jan-2014 16:01, Right bundle branch block is now Present Confirmed by Usman Larson ([id number]) on 11/08/2024 7:18:23 AM us Thee Grossman MD ECG ORDERABLES Final Re sult [facility] from Last 3 Months Insurance MEDICARE HMO REPLACEMENT MEDICARE HMO REPLACEMENT MEDICARE HMO REPLACEMENT [place] RE[place] REPLACEMENT [place] [place] [employer] REPLACEMENT Member Subscriber Plan / Payer (Ef fective 2017-Present) Name:Usman Foster Relation to Subscriber:Self Name:Usman Foster Payer ID:Not on file Type:Medicare Address: [place] [id number] [employer] [place] MEDIC[employer] HMO REPLACEMENT [employer] [place] MED[employer] [place] REPLACEMENT Advance Directives For more information, please contact: [phone] (9AM - 5PM [place], Monday-Monday) * Full Code (Latest Code Status on File) Date Activated Date Inactivated Comments 11/07/2024 9:30 PM Question Answer Comments Code Status Confirmed With: Patient Care Teams [employer] Team Member Relationship Specialty Start Date End Date Skyla Salomon MD PCP - General Internal Medicine 06/17/22 Additional Source Comments The information contained in this document represents components of the legal health record. It is not the complete legal health record.[facility]
== END 2025-01-06 14:51 | disposition home or self-care (01) ==
LOC: HO.HMCFM 13:33
PROVIDERS: PCP Internal Medicine; Visit Provider Internal Medicine
DX: D69.2 Other nonthrombocytopenic purpura (principal); I25.10 Atherosclerotic heart disease of native coronary artery without angina pectoris; Z98.61 Coronary angioplasty status

== ENCOUNTER 2025-01-06 13:33 | Outpatient (REF) | payer OTHER, SELFPAY ==
[2025-01-06 17:28] LABS: MANUAL DIFF FLAG NO
[2025-01-06 17:30] LABS: Hematocrit 39.5 % (42.0-52.0); Hemoglobin 13.6 g/dl (14.0-18.0); Imm Gran Abs Auto 0.01 X10*3/uL (0.00-0.03); Imm Gran Pct Auto 0.2 % (0.0-0.4); Lymphocytes Absolute Auto 0.9 X10*3/uL (1.2-4.9); Mean Corpuscular HGB Conc 34.4 g/dl (31.0-36.0); Mean Corpuscular Hemoglobin 34.1 pg (27.0-33.0); Mean Corpuscular Volume 99.0 fL (80.0-98.0); NRBC Abs Auto 0.000 X10*3/uL (0.0-0.012); NRBC Pct Auto 0.0 /100WBC (0.0-0.2); Platelet Count 169 X10*3/uL (160-400); Red Blood Count 3.99 X10*6/uL (4.60-5.80); White Blood Count 6.1 X10*3/uL (4.8-10.8)
[2025-01-06 17:36] LABS: Fibrinogen 461 MG/DL (259-690); INTERNATIONAL NORM RATIO 1.1 (0.9-1.1); Prothrombin Time 12.8 SEC (10.9-12.4)
[2025-01-06 17:39] LABS: Partial Thromboplastin Time 31.5 SEC (26.7-34.1)
[2025-01-06 18:08] LABS: Alanine Aminotransferase 207 U/L (0-40); Albumin Level 4.0 g/dL (3.5-5.0); Alkaline Phosphatase 110 U/L (39-117); Anion Gap 11 (12-20); Aspartate Amino Transferase 135 U/L (5-37); Blood Urea Nitrogen 27 mg/dL (9-16); Calcium 9.0 mg/dL (8.4-10.2); Carbon Dioxide 25 mmol/L (22-29); Chloride 109 mmol/L (96-108); Estimated Glomerular Filt Rate 50; Potassium 4.8 mmol/L (3.3-5.1); Sodium 140 mmol/L (135-145); Total Protein 6.4 g/dL (6.5-8.0)
[2025-01-07 14:43] LABS: Proteinase 3 PR3 Antibodies <1.0 AI
== END 2025-01-06 13:34 | disposition home or self-care (01) ==
LOC: HO.WFDLDS 13:33
PROVIDERS: PCP Internal Medicine; Visit Provider Internal Medicine
DX: R23.3 Spontaneous ecchymoses (principal); D69.2 Other nonthrombocytopenic purpura; I25.10 Atherosclerotic heart disease of native coronary artery without angina pectoris; N17.9 Acute kidney failure, unspecified; Z98.61 Coronary angioplasty status
CPT/HCPCS: 80053; 85025; 85384; 85610; 85730; 86021; 96127

== ENCOUNTER 2025-01-07 10:38 | Outpatient (AMB) | payer OTHER, SELFPAY ==
--- OUTSIDE RECORDS SUMMARY | 2024-12-13 08:21 | XMS_ITS | Continuity of Care Document ---
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 Name Role Phone [facility] Unavailable Unavailable Problems Combined list of problems [...] ONCE DAILY ORAL ACTIVE Kecia VILLANUEVA 2020 [facility] AZELAIC ACID 20% CREAM,TOP APPLY A SMALL AMOUNT TOPICALL Y ONCE DAILY TOPICA Kecia CRAMER 2020 [facility] BETAMETHASO NE [...] Y PRN TOPICA L ACTIVE RICH,E ELLE2020 [facility] FISH OIL CAP,ORAL TAKE 1200MG BY MOUTH ONCE DAILY ORAL ACTIVE VILLANUEVA,E ELLE2020 [facility] HYDROXYZINE HCL 25MG TAB TAKE ONE TABLET BY MOUTH PRN ORAL ACTIVE RICH,E ELLE2020 [facility] [place] POTASSIUM 100MG TAB TAKE ONE TABLET BY MOUTH ONCE DAILY ORAL ACTIVE RICH,E ELLE2020 [facility] LUTEIN CAP/TAB TAKE 20MG BY MOUTH ONCE DAILY ORAL ACTIVE VILLANUEVA,E ELLE2020 [facility] METRONIDAZO LE 0.75% CREAM,TOP APPLY A THIN LAYER TOPICALL Y ONCE DAILY TOPICA L ACTIVE RICH,E ELLE2020 [facility] MULTIVITAMI NS W/MINERALS TAB TAKE ONE TABLET BY MOUTH ONCE DAILY ORAL ACTIVE RICH,E ELLE2020 [facility] NITROGLYCER IN 0.4MG TAB,SUBLING UAL DISSOLVE UNDER THE TONGUE EVERY 5 MINUTES NEEDED SUBLIN GUAL ACTIVE RICH,E ELLE2020 [facility] [place] OMEPRAZOLE 20MG CAP,EC TAKE 1 CAPSULE BY MOUTH EVERY MORNING 30 MINUTES BEFORE BREAKFAS T ORAL ACTIVE RICH,E ELLE[address] [facility] [facility] ROSUVASTATI N CA 20MG TAB TAKE ONE-HALF TABLET BY MOUTH ONCE DAILY ORAL ACTIVE RICH,E ELLE2020 [facility] SILDENAFIL CITRATE 100MG TAB TAKE ONE TABLET BY MOUTH PRN ORAL ACTIVE [facility]ecia [facility]UEVA 2020 [facility] TAMSULOSIN HCL 0.4MG CAP TAKE 2 CAPSULES BY MOUTH ONCE DAILY ORAL ACTIVE Kecia VILLANUEVA 2020 [facility] ZOLPIDEM TARTRATE 5MG TAB TAKE ONE TABLET BY MOUTH AT BEDTIME NEEDED ORAL ACTIVE Kecia VILLANUEVA 2020 [facility] Allergies, Adverse Reactions, Alerts Combined list of allergies from [facility] and [facility] facilities. It does not include entries that were removed or entered in error. Substance Category Reaction Severity Reaction type Status Date Reported Comments Source BACTRIM Propensity to adverse reactions to drug (finding) Eruption active 1 [facility] PLAVIX Propensity to adverse reactions to drug (finding) Eruption active 1 [facility] Immunizations Combined list of available immunizations from the Department of [facility] and [facility] facilities. 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 Status Comments Source INFLUENZA VACCINE, QUADRIVALENT, ADJUVANTED 2020 205 [facility] COVID-19 (MODERNA), MRNA, LNP-S, PF, 100 MCG/0.5ML DOSE OR 50 MCG/0.25ML DOSE 3 2020 207 complet [facility] COVID-19 (PFIZER), MRNA, LNP-S, PF, 30 MCG/0.3 ML DOSE 2 2020 208 complet [facility] COVID-19 (PFIZER), MRNA, LNP-S, PF, 30 MCG/0.3 ML DOSE 1 2020 208 complet ed [facility] Encounters Combined list of: 1) Encounters from Department of Veterans Affairs facilities going backup to the last 18 months, not all VA inpatient encounters are included; 2) Encounters from the Department of [facility] facilities going backup to 280 months. Location Location Details Encounter Type Encounter Number Reason For Visit Attending Provider ADM Date DC Date Status [facility] Outpatient Encounter [id number] 12/13 [facility] [email or web address] [facility] [employer] [facility] Social History Combined list of available smoking, tobacco, and other social history from Department of Defense and Veterans Affairs facilities. Social History Type Response Date Comment Sour e Tobacco smoking status NHIS RI-TOBACCO FORMER USER 02/10/2021 [facility] [place] [facility] History of tobacco use RI-TOBACCO QUIT 15 YRS OR MORE 02/10/2021 [facility] [employer] [facility] [email or web address]
--- NOTE | 2025-01-07 10:41 | A.OFFVIS_ITS ---
Vital Signs 01/07/25 11:00 Height 5 ft 6 in Weight 134 lb BMI 21.6 BP 112/65 Blood Pressure Location Rt brachial Position Sitting Pulse 65 Intake Visit Reasons: purpura Intake Note: Patient referred by pcp Dr. Borges for a punch biopsy to rule out purpura. Patient c/o: bruising like lesions that appear anywhere in the body. Clinical Registered Nurse Required: No Accompanied by: spouse Blanca Allergies clopidogrel (From PLAVIX) Allergy (Intermediate, Verified 01/07/25 10:59) RASH sulfamethoxazole (From BACTRIM) Allergy (Intermediate, Verified 01/07/25 10:59) RASH trimethoprim (From BACTRIM) Allergy (Intermediate, Verified 01/07/25 10:59) RASH Medication List - Last Reconciled 01/07/25 by Jaiden Andres MD amlodipine 5 mg PO DAILY ascorbic acid (vitamin C) 500 mg PO DAILY aspirin 81 mg PO DAILY azelaic acid 20% (Azelex) 1 appl topical BID bupropion HCl XL (Wellbutrin XL) 150 mg PO QAM carvedilol 6.25 mg PO BID clotrimazole 1% 1 appl topical QAM AND QHS hydroxyzine HCl 25 mg PO BID losartan 100 mg PO DAILY lutein 20 mg PO DAILY metronidazole 0.75% 1 appl topical DAILY multivitamin 1 tab PO DAILY nitroglycerin 0.4 mg sublingual Q5M PRN omeprazole 20 mg PO DAILY rosuvastatin 20 mg PO DAILY sildenafil 100 mg PO DAILY PRN tamsulosin 0.8 mg (2 x 0.4 mg) PO DAILY vit C,E,Zn,Ai--enx-zeax 250-2.5-0.5 mg caps PO [vitamin A .] zolpidem 5 mg PO BEDTIME HPI HPI purpura: Details: 79-year-old male referred for a skin biopsy. He has been having this transient, migrating violaceous discoloration of the arms for about 2-3 months now. He says that this would resolve but would show up in other areas. Denies any pain on the affected areas. He had been on anticoagulation because of IA 2 months ago but he says that these skin changes happen even before he was started on anticoagulation. He had a stent done 2 months ago as well as 2 weeks ago for the IA. He currently denies any acute shortness of breath. He denies any trauma to the areas involved. [facility] Medical History [place] (acute kidney injury) CAD S/P percutaneous coronary angioplasty Myocardial infarction Sinusitis Stable angina Macular degeneration PUD (peptic ulcer disease) History of BPH GERD (gastroesophageal reflux disease) GIB (gastrointestinal bleeding) Ex-cigarette smoker Diverticulitis of sigmoid colon Coronary atherosclerosis of solomon coronary artery H/O degenerative disc disease Benign essential hypertension Surgical History H/O tooth extraction Hx of colonoscopy Family History Mother Lung cancer Smoker Father Stroke Smoker Sister Cancer, metastatic Maternal Grandmother Diabetes Social History Housing: House Alcohol intake: never Patient Tobacco Use Status: Former Tobacco user Cigarette Packs Per Day: 1 Years Smoked: 10 e-Cigarette/Vaping Use: Never Used Second Hand Smoke Exposure: No service: Yes Current occupational status: retired Cognitive needs: No Hearing needs: No Vision needs: Yes (macular degeneration) Review of Systems Const Denies chills and Denies fever(s) Card Denies chest pain, Denies dyspnea and Denies dyspnea on exertion Resp Denies cough, Denies dyspnea and Denies dyspnea on exertion GI Denies hematochezia and Denies change in bowel habits Denies hematuria and Denies difficulty urinating Musc Denies back pain and Denies limited range of motion Neuro Denies focal weakness and Denies convulsions Psych Denies depression and Denies mood swings Physical Exam Const General: comfortable and no acute distress Orientation/consciousness: patient oriented x3 Neck Neck: Yes no lymphadenopathy Resp Auscultation: clear to auscultation bilaterally Cardio Rhythm: regular rhythm GI Palpation (GI): Soft to palpation, nontender and no guarding Neuro General: patient oriented x3 Extrem Other: Areas of violaceous discoloration of the skin on both the left and right forearm, mostly on the left, some of these are congruent, with no palpable mass on open wounds Office Procedures Punch Biopsy Details: An area of the left forearm with the discoloration was prepped and draped. L idocaine 1% was used for local anesthesia. I used a 3 mm dermal punch biopsy to excise he had an subcutaneous tissue. Dressings were applied. There was good of good him hemostasis. He tolerated procedure well. There was no bleeding or any complications. 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 I explained to the technique of punch biopsy under local anesthesia. He understood the risks, benefits, and alternatives He had given consent Dermal punch biopsy was done under local anesthesia and he tolerated this well. Dressings were applied. He was given wound care instructions. He can take Tylenol p.r.n. for pain I will forward the results of the biopsy to his primary care physician. Coding Level of Care Code New Pt Level 3 (28693) Diagnoses Purpura D69.2
[2025-01-07 11:00] VITALS: BP 112/65; PULSE 65; BMI 21.6
--- OUTSIDE RECORDS SUMMARY | 2025-01-07 11:31 | XMS_ITS | Clinical Summary ---
Author Organization [facility] Address [address] [place] [address] Phone Care Team Providers Care Custodial Manager Name Role Phone Skyla Salomon MD Primary Care Provider Allergies Active Allergy Reactions Criticality Noted Date [...] Active vitamins A,C,E-zinc-joe er (PRESERVISION AREDS) 14,[id number] cvzi-zp-zisr Cap Take 1 capsule by mouth 2 [...] 01/2025 which is already scheduled with his barrel liner. 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 His stress testing has been normal in the past. More recently had placement of DANIELA to RCA ISR 11/11/2024 at [facility]. Recommendation was to consider staged PCI [...] so we will schedule patient with his barrel liner in 2 weeks for cath talk to [...] of hypotension, CAD, HLD, HX of inferior VT status post bare-metal stent placed to RCA in 2014 to the right coronary artery. Followed by Dr. Hill - Nuclear stress test done last year at [facility] was normal with normal EF -10/08 total cholesterol 109; HDL 42; LDL 48; triglycerides 97 -10/08 A1c 5.7 Plan: - Continue aspirin, beta-los, ARB, statin -Cardiology following Assessment & Plan (10/31/2024 12:56 PM EDT): History of inferior VT 2014 status post bare-metal stent to his [...] (09/24/2024 2:17 PM EDT): History of inferior VT 2014 status post bare-metal stent to his [...] (08/08/2024 8:02 AM EDT): History of inferior VT 2014 status post bare-metal stent to his [...] 7:48 AM EDT): He had an inferior VT with stenting to his RCA in 2014. He continues to be asymptomatic at this time. He has not needed to use nitroglycerin. He did have a emergency room visit at [facility] in the distant past where he was [...] Patient has a history of an inferior VT and stenting to his RCA in 2014. [...] EDT): His a history of an inferior VT and stenting to his RCA in 2014. [...] - 12/18/2024 11:59 PM EDT Hospital Encounter [facility] [address] [place] [address] Charlie Hill MD Discharge Disposition: Home or Self Care 12/16/2024 Telephone [facility] [place] [address], [address] [place] [address] Charlie Hill MD 12/11/2024 10:00 AM EDT Office Visit [place] [address] [facility] [address], [address] [place] [address] Charlie Hill MD Pure hypercholesterolemia (Primary Dx); Coronary artery disease involving [place] coronary artery of [place] heart without angina pectoris; Essential hypertension; Chest pain, unspecified type 12/11/2024 Orders Only [facility] [address], [address] [place] [address] Charlie Hill MD Coronary artery disease involving tonkawa coronary artery of [place] heart without angina pectoris (Primary Dx) 11/28/2024 9:00 AM EDT Office Visit [facility] [address] Floor, [address] [place] [address] Zohra Black PA-C Essential hypertension (Primary Dx); Pure hypercholesterolemia; Nonrheumatic mitral valve regurgitation 11/18/2024 8:05 AM EDT - 11/18/2024 11:59 PM EDT Hospital Encounter [facility] [address] [place] [address] Zohra Black PA-C Discharge Disposition: Home or Self Care 11/07/2024 5:35 PM EDT - 11/09/2024 7:00 PM EDT Hospital Encounter [facility] [address] [place] [address] Mart Mirza MD Arepally, Sandeep, MD Altman, Evan K, DO, MPH Lauren Black DO Discharge Disposition: Short Term Hospital 11/07/2024 Procedure Pass [facility] [address] [place] [address] 10/29/2024 2:30 PM EDT Office Visit [facility] [address], [address] [place] [address] Zohra Black PA-C Decreased GFR (Primary Dx); CAD in tonkawa artery; Pure hypercholesterolemia; Essential hypertension from Last [...] Description 01/28/2025 10:30 AM EDT Office Visit [facility] [address], [address] [place] [address] Zohra Black PA-C [address] [place] [id number] [email or web address] 8:00 AM EDT Office Visit [facility] [address], [address] [place] [address] Zohra Black PA-C [address] [place] [address] Health Maintenance Due Date Last Done Comments [...] EDT Pure hypercholesterolemia Coronary artery disease involving tonkawa coronary artery of [place] heart without angina pectoris Essential hypertension Chest pain, unspecified type LIPID PANEL Routine 12/18/2024 8:16 AM EDT Pure hypercholesterolemia CBC AND DIFFERENTIAL Routine 12/18/2024 8:16 AM EDT Coronary artery disease involving [place] coronary artery of [place] heart without angina pectoris PT-INR Routine 12/18/2024 8:16 AM EDT Coronary artery disease involving [place] coronary artery of [place] heart without angina pectoris BASIC METABOLIC PANEL Routine 11/18/2024 8:47 AM EDT Decreased GFR TTE COMPREHENSIVE Routine 11/08/2024 1:1 0 PM EDT Chest pain, unspecified type NC MYOCARDIAL PERFUSION PHARMACOLOGIC STRESS MULTIPLE Routine 11/08/2024 12:45 PM EDT Coronary artery disease involving [place] coronary artery of [place] heart, unspecified whether angina present NC100 (TECH ORDER ONLY) NC STRESS TEST WITH NUCLEAR IMAGING Routine 11/08/2024 12:15 PM EDT Coronary artery disease involving [place] coronary artery of [place] heart, unspecified whether angina present Chronic coronary [...] EDT) SODIUM 140 133 - 146 mmol/L [facility] POTASSIUM 4.2 3.3 - 5.1 mmol/L [facility] Comment:Specimen slightly he molyzed, result may be falsely elevated. CHLORIDE 107 96 - 108 mmol/L [facility] CO2 22 21 - 35 mmol/L [facility] BUN 22(H) 6 - 19 mg/dL [facility] CREATININE 1.20 0.5 - 1.5 mg/dL [facility] GLUCOSE 88 70 - 99 mg/dL [facility] ALBUMIN 4.0 3.9 - 4.8 g/dL [facility] TOTAL PROTEIN 6.7 6.5 - 8.0 g/dL [facility] CALCIUM 9.5 8.4 - 10.3 mg/dL [facility] ALKALINE PHOSPHATASE 91 39 - 117 U/L [facility] TOTAL BILIRUBIN 0.7 0.0 - 1.2 mg/dL [facility] AST 41(H) 0 - 37 U/L [facility] ALT 52(H) 0 - 40 U/L [facility] GLOBULIN 2.7 1 - 4.8 g/dL [facility] EGFR 61 >59 mL/min/1.7 3m2 [facility] Comment:Estimated glomerular filtration rate calculated using the CKD-EPI refit equation. ANION GAP 15 10 - 20 mmol/L [facility] Blood 12/18/2024 8:16 AM EDT 12/18/2024 8:18 AM EDT Charlie Hill MD LAB BLOOD ORDERABLES Final Result [address] [address] * (ABNORMAL) PT-INR (12/18/2024 8:16 AM EDT) PT 13.8(H) 10.2 - 12.9 sec [facility] INR 1.1 0.9 - 1.1 [facility] Comment:Therapeutic range fo r oral Vitamin K antagonists: 2.0-3.5 Blood 12/18/2024 8:16 AM EDT 12/18/2024 8:18 AM EDT Charlie Hill MD LAB BLOOD ORDERABLES Final Result Performing Organization Address City/[facility]/ZIP Co de Phone Number [address] [address] * (ABNORMAL) CBC and differential (12/18/2024 8:16 AM EDT) Only the most recent of3 resultswithin the time period is included. WBC 5.26 4.00 - 11.00 K/uL [facility] RBC 4.29(L) 4.50 - 5.90 M/uL [facility] HGB 14.2 13.5 - 17.5 g/dL [facility] HCT 41.6 41.0 - 53.0 % [facility] PLT 168 150 - 450 K/uL [facility] MCV 97.0 80.0 - 100.0 fL [facility] MCH 33.1(H) 27.0 - 31.0 pg [facility] MCHC 34.1 32.0 - 36.0 g/dL [facility] RDW 13.0 11.5 - 14.5 % [facility] MPV 9.5 8.4 - 12.0 fL [facility] NRBC 0.00 0.00 /100 WBCs [facility] ABSOLUTE NRBC 0.00 0.00 K/uL [facility] DIFF METHOD Auto [facility] NEUTS 59.6 48.0 - 76.0 % [facility] LYMPHS 21.7 18.0 - 41.0 % [facility] MONOS 12.4(H) 4.0 - 11.0 % [facility] EOS 5.3(H) 0.0 - 5.0 % [facility] BASOS 0.8 0.0 - 1.5 % [facility] Granulocytes, immature (%) 0.2 0.0 - 0.9 % [facility] ABSOLUTE NEUTS 3.14 1.92 - 7.60 K/uL [facility] ABSOLUTE LYMPHS 1.14 0.72 - 4.10 K/uL [facility] ABSOLUTE MONOS 0.65 0.16 - 1.10 K/uL [facility] ABSOLUTE EOS 0.28 0.00 - 0.50 K/uL [facility] ABSOLUTE BASOS 0.04 0.00 - 0.15 K/uL [facility] Granulocytes, immature 0.01 0.00 - 0.09 K/uL [facility] Blood 12/18/2024 8:16 AM EDT 12/18/2024 8:18 AM EDT us Charlie Hill MD LAB BLOOD ORDERABLES Final Result Performing Organization Address City/State/[facility] Co de Phone Number [address] [address] * (ABNORMAL) Lipid panel (12/18/2024 8:16 AM EDT) Only the most recent of2 resultswithin the time period is included. HDL 47 mg/dL [facility] Comment: Interpretation <40 mg/dL: Low HDL cholesterol (major risk factor for CHD) Greater than or equal to 60 mg/dL: High HDL cholesterol ( negative risk factor for CHD) HDL - cholesterol is affected by a number of factors, e.g. smoking, excerise, hormones, sex and age. CHOLESTEROL 95 0 - 240 mg/dL [facility] TRIGLYCERIDES 85 30 - 160 mg/dL [facility] LDL 31(L) 50 - 129 mg/dL [facility] Comment: LDL levels in terms of risk for coronary heart disease: <100 mg/dL: Optimal 100-129 mg/dL: Near or above optimal 130-159 mg/dL: Borderline high 160-189 mg/dL: High >190 mg/dL: Very High CARDIAC RISK RATIO 2.0(L) 3.4 - 5.0 [facility] Blood 12/18/2024 8:16 AM EDT 12/18/2024 8:18 AM EDT us Charlie Hill MD LAB BLOOD ORDERABLES Final Result Performing Organization Address City/[facility] Co de Phone Number [address] [phone] * (ABNORMAL) Basic metabolic panel (11/18/2024 8:47 AM EDT) Only the most recent of3 resultswithin the time period is included. SODIUM 141 133 - 146 mmol/L [facility] CHLORIDE 108 96 - 108 mmol/L [facility] POTASSIUM 4.0 3.3 - 5.1 mmol/L [facility] CO2 23 21 - 35 mmol/L [facility] BUN 29(H) 6 - 19 mg/dL [facility] CREATININE 1.20 0.5 - 1.5 mg/dL [facility] GLUCOSE 94 70 - 99 mg/dL [facility] CALCIUM 9.3 8.4 - 10.3 mg/dL [facility] EGFR 61 >59 mL/min/1.7 3m2 [facility] Comment:Estimated glomerular filtration rate calculated using the CKD-EPI refit equation. ANION GAP 14 10 - 20 mmol/L [facility] Blood 11/18/2024 8:47 AM EDT 11/18/2024 8:48 AM EDT us Zohra Black PA-C LAB BLOOD ORDERABLES Final R esult [facility] [address] [place] [address] * TTE COMPREHENSIVE (11/08/2024 1:10 PM EDT) [...] interatrial septum appears normal. us Lauren Recinos Icelandic DO CV ECHO ORDERABLES Final Resu lt [...] separately. Please refer to that report in [facility]. COMPARISON: None. FINDINGS: Myocardial Perfusion Zone [...] reportedseparately. Please refer to that report in [facility]. COMPARISON: None. FINDINGS: Myocardial Perfusion Zone [...] that report in Epic. us Lauren A Icelandic DO CV NM CARDIAC Final Result * NC Stress Result for Nuclear Stress Test (11/08/2024 12:15 PM EDT) Max Predicted Heart Rate 140 bpm [facility] Max BP Systolic 142 mmHg [facility] Max BP Diastolic 90 mmHg [facility] Max HR 114 BPM [facility] Resting HR 70 BPM [facility] Resting BP Systolic 114 mmHg [facility] Resting BP Diastolic 70 mmHg [facility] Peak METS 3.4 METS [facility] Peak HR 114 BPM [facility] Peak BP Systolic 100 mmHg [facility] Peak BP Diastolic 50 mmHg [facility] Anatomical Region Laterality Modality Heart Other 11/08/2024 [...] by injection of Tc99m Sestamibi by Fani certified hyperbaric technologist. 1. EKG: Baseline EKG showed rhythm, RBBB. [...] predicted heart rate. Rate pressure product was [id number]. Lauren A Icelandic DO CV NM CARDIAC Final Result * Phosphorus (11/08/2024 6:27 AM EDT) PHOSPHORUS 3.9 2.7 - 4.5 mg/dL [facility] Blood 11/08/2024 6:27 AM EDT 11/08/2024 6:45 AM EDT Lauren A Icelandic DO LAB BLOOD ORDERABLES Final Re sult Performing Organization Address [facility] Co de Phone Number [address] [address] * Magnesium (11/08/2024 6:27 AM EDT) MAGNESIUM 2.1 1.6 - 2.6 mg/dL [facility] Blood 11/08/2024 6:27 AM EDT 11/08/2024 6:45 AM EDT Lauren A Icelandic DO LAB BLOOD ORDERABLES Final Re sult Performing Organization Address [facility]/ZIP Co de Phone Number [address] [address] * Hemoglobin A1c (11/08/2024 6:27 AM EDT) HEMOGLOBIN A1C 5.7 4.3 - 5.8 % [facility] 11/08/2024 6:27 AM EDT 11/08/2024 6:45 AM EDT us Lauren Black DO LAB BLOOD ORDERABLES Final Re sult Performing Organization Address City/[facility]/ZIP Co de Phone Number [address] [address] * (ABNORMAL) Troponin (11/07/2024 5:31 PM EDT) Only the most recent of2 resultswithin the time period is included. Troponin-T, HS Gen5 28(H) 0 - 14 ng/L [facility] Blood 11/07/2024 5:31 PM EDT 11/07/2024 5:32 PM EDT us Thee Grossman MD LAB BLOOD ORDERABLES Fin al Result Performing Organization Address [facility] Co de Phone Number [address] [address] * ECG 12-LEAD (11/07/2024 3:51 PM EDT) Ventricular Rate EKG/MIN 58 BPM [facility] Atrial Rate 58 BPM [facility] CA Interval 148 ms [facility] QRS Duration 128 ms [facility] QT Interval 456 ms [facility] QTC Interval 447 ms [facility] P [place] 25 degrees [facility] R Wave [place] -50 degrees [facility] T Wave [place] -22 degrees [facility] 11/07/2024 3:51 PM EDT [...] Foster Payer ID:Not on file Type:Medicare Address: [place] [id number] [employer] [place]AC[employer] Advance Directives For more information, please contact: [phone] (9AM - 5PM [place], Monday-Monday) * Full Code (Latest Code Status on File) Date Activated Date Inactivated Comments 11/07/2024 9:30 PM Question Answer Comments Code Status Confirmed With: Patient Care Teams Custodial Manager Relationship Specialty Start Date End Date kSyla Salomon MD PCP - General Internal Medicine 06/17/22 Additional Source Comments The information contained in this document represents components of the legal health record. It is not the complete legal health record.[facility]
--- OUTSIDE RECORDS SUMMARY | 2025-01-07 11:31 | XMS_ITS | Encounter Summary ---
Author Organization [facility] Address [address] [place] [address] Phone Care Team Providers Care Library Circulation Department Chief Name Role Phone Skyla Salomon MD Primary Care Provider Encounter Details Date Type Department Care Team (Late st Contact Info) Description 11/07/2024 Procedure Pass [facility] [address] [place] [address] Social History Tobacco Use Types Packs/Day Years Used Date Smoking Tobacco: Former Cigarettes 1 708 - 9164 Smokeless Tobacco: Never Alcohol Use Standard Drinks/Week [...] 6:09 PM EDT Erika Zuñiga RN * [place] Suicide Severity Rating Scale (Screener/Recent Self-Report) Question [...] Description 01/28/2025 10:30 AM EDT Office Visit [facility] [address], [address] [place] [address] Zohra Black PA-C [address] [place] [id number] 8:00 AM EDT Office Visit [facility] [address] [place] [address] 3rd Floor, [address] [place] [address] Zohra Black PA-C [address] [place] [phone] documented as of this encounter Visit Diagnoses Not on filedocumented in this encounter Care Teams Library Circulation Department Chief Relationship Specialty Start Date End Date Skyla Salomon MD PCP - General Internal Medicine 06/17/22 documented as of this encounter Additional Source Comments The information contained in this document represents components of the legal health record. It is not the complete legal health record.[facility]
== END 2025-01-07 11:00 | disposition home or self-care (01) ==
LOC: HO.HGS 10:39
PROVIDERS: PCP Internal Medicine; Visit Provider Surgery
DX: D69.2 Other nonthrombocytopenic purpura (principal)
CPT/HCPCS: 99203

== ENCOUNTER 2025-01-07 10:38 | Outpatient (REF) | payer OTHER, SELFPAY | END 2025-01-07 10:39 | disposition home or self-care (01) | LOC: HO.LNP 10:38 | PROVIDERS: PCP Internal Medicine; Visit Provider Surgery | DX: D69.2 Other nonthrombocytopenic purpura (principal) | CPT/HCPCS: 88304; 88305 ==

== ENCOUNTER 2025-02-06 08:12 | Outpatient (REF) | payer OTHER, SELFPAY ==
--- NOTE | ~2025-02-06 | US_ITS ---
CLINICAL HISTORY: R79.89 - Other specified abnormal findings of blood chemistry --- Additional Notes or Special Instructions: new elevated lfts US abdomen limited Comparison: None provided Findings: The visualized pancreas head is normal. The visualized aorta and inferior vena cava are normal caliber. The liver is normal in size, right lobe length is 13.4 cm. Normal in echogenicity, no discrete lesion is visualized in the imaged liver. No intrahepatic bile duct dilatation. The common duct is 4 mm in diameter. The gallbladder is normal. Negative sonographic Wilson sign. The main portal vein is patent with antegrade flow. The right renal simple cyst 2.6 x 2.4 x 2.1 cm of the lower pole, extrarenal pelvis noted, otherwise normal, 10.4 cm in length. No free fluid in the abdomen. Impression: Right renal benign cyst, otherwise unremarkable exam. This document has been electronically signed by: Shelbi Baez MD on 02/06/2025 12:49:12
== END 2025-02-06 08:13 | disposition home or self-care (01) ==
LOC: HO.US 08:12
PROVIDERS: PCP Internal Medicine; Visit Provider Internal Medicine
DX: R79.89 Other specified abnormal findings of blood chemistry (principal)
CPT/HCPCS: 76705

== ENCOUNTER → 2025-02-06 08:17 | Outpatient (BNV) | payer OTHER, SELFPAY | PROVIDERS: PCP Internal Medicine; Visit Provider Radiology Diagnostic Radiology | DX: N28.1 Cyst of kidney, acquired (principal) | CPT/HCPCS: 76705 ==

== ENCOUNTER → 2025-02-10 13:03 | Outpatient (BNV) | payer OTHER, SELFPAY | PROVIDERS: PCP Internal Medicine; Referring Provider Internal Medicine; Visit Provider Nurse Practitioner Family | DX: D69.2 Other nonthrombocytopenic purpura (principal); D53.1 Other megaloblastic anemias, not elsewhere classified; N18.31 Chronic kidney disease, stage 3a | CPT/HCPCS: 99204 ==

== ENCOUNTER 2025-03-21 09:52 | Outpatient (AMB) | payer OTHER, SELFPAY ==
[2025-03-21 09:56] VITALS: BP 138/70; PULSE 61; O2SAT 92; BMI 20.7
--- NOTE | 2025-03-21 09:56 | HO.NEPHOV_ITS ---
Vital Signs 03/21/25 09:56 03/21/25 10:23 03/21/25 10:23 Height 5 ft 6 in Weight 128 lb BMI 20.7 BP 138/70 120/60 106/60 Blood Pressure Location Lt brachial Lt brachial Lt brachial Position Sitting Sitting Standing Pulse 61 Pulse Source Pulse Oximeter Pulse Oximetry (%) 92 Oxygen Delivery Method Room Air Intake Visit Reasons: Worsening Renal Function conf Channel Process Plant Operator Required: No Accompanied by: Spouse Allergies clopidogrel (From PLAVIX) Allergy (Intermediate, Verified 03/21/25 10:01) RASH sulfamethoxazole (From BACTRIM) Allergy (Intermediate, Verified 03/21/25 10:01) RASH trimethoprim (From BACTRIM) Allergy (Intermediate, Verified 03/21/25 10:01) RASH Medication List - Last Reconciled 03/21/25 by Kavin Tracey MD amlodipine 5 mg PO DAILY ascorbic acid (vitamin C) 500 mg PO DAILY aspirin 81 mg PO DAILY azelaic acid 20% (Azelex) 1 appl topical BID carvedilol 6.25 mg PO BID clotrimazole 1% 1 appl topical QAM AND QHS hydroxyzine HCl 25 mg PO BID losartan 50 mg PO DAILY lutein 20 mg PO DAILY metronidazole 0.75% 1 appl topical DAILY multivitamin 1 tab PO DAILY nitroglycerin 0.4 mg sublingual Q5M PRN omeprazole 20 mg PO DAILY rosuvastatin 20 mg PO DAILY sildenafil 100 mg PO DAILY PRN tamsulosin 0.8 mg (2 x 0.4 mg) PO DAILY ticagrelor (Brilinta) 90 mg PO BID vit C,E,Zn,Kp-[id number]-qdp-zeax 250-2.5-0.5 mg 2.5 caps PO DAILY [vitamin A 2,400 mcg PO DAILY] zolpidem 5 mg PO BEDTIME HPI Comments Details: The patient is an 80-year-old male refered for CKD Baselien Cr was 1.07 in Mar 2024 The kidney function has been fluctuating for quite a while, with a recent GFR of 58 over the last four months. The creatinine levels have shown improvement from 1.46 in October to 1.33 in January, although not yet normalized. The patient has a history of coronary artery disease, having undergone stent placement following episodes of chest pain in October 2024 and subsequent months. Three blockages were identified, with two stents placed and the third left untreated. The patient has a history of hypertension, which is currently managed with medications including amlodipine, carvedilol, and losartan. Blood pressure readings have been controlled, although there is a noted drop upon standing, and occasional lightheadedness The patient has a history of smoking, having quit 50 years ago after smoking half a pack daily for 15 years. The patient also has age-related macular degeneration and has recently had two stents placed in the heart. [facility] Medical History (Updated 03/21/25 @ 10:29 by Kavin Tracey MD) [place] (acute kidney injury) CAD S/P percutaneous coronary angioplasty Myocardial infarction Sinusitis Stable angina Macular degeneration PUD (peptic ulcer disease) History of BPH GERD (gastroesophageal reflux disease) GIB (gastrointestinal bleeding) Ex-cigarette smoker Diverticulitis of sigmoid colon Coronary atherosclerosis of [place] coronary artery H/O degenerative disc disease Benign essential hypertension Surgical History (Updated 03/21/25 @ 10:00 by NIYAH Joseph) History of coronary artery stent placement (~01/2025) H/O tooth extraction Hx of colonoscopy Family History Mother Lung cancer Smoker Father Stroke Smoker Sister Cancer, metastatic Maternal Grandmother Diabetes Social History Household Members: Spouse Housing: House Are you a primary ocular care technician to a significant other at home: No (for each other) Do you presently have visiting nurse or other home services: No Alcohol intake: never Patient Tobacco Use Status: Former Tobacco user Cigarette Packs Per Day: 1 Years Smoked: 10 e-Cigarette/Vaping Use: Never Used Second Hand Smoke Exposure: No service: Yes Current occupational status: retired Cognitive needs: No Hearing needs: No Vision needs: Yes (macular degeneration) Review of Systems Const Denies fever(s) and Denies weight loss Card Denies chest pain Resp Denies cough and Denies hemoptysis GI Denies abdominal pain, Denies diarrhea and Denies nausea Musc Denies back pain Neuro Denies focal weakness Physical Exam Vital Signs: Last Vital Signs Pulse 61 03/21/25 09:56 BP 138/70 03/21/25 09:56 Pulse Ox 92 03/21/25 09:56 Oxygen Delivery Method Room Air 03/21/25 09:56 BMI result Body Mass Index 20.7 Comfortable Neck supple no JVD. Lungs entry equal no rales. Heart S1-S2 heard no gallop or rub. Abdomen soft nontender. Neuro alert awake oriented. No asterixis. Extremities no edema. Results Reviewed Nephrology Results: Hgb, (14.0-18.0) 13.6 g/dl L 02/10/25 WBC, (4.8-10.8) 6.3 X10*3/uL 02/10/25 Plt Count, (160-400) 166 X10*3/uL 02/10/25 Sodium, (135-145) 141 mmol/L 02/10/25 Potassium, (3.3-5.1) 4.8 mmol/L 02/10/25 Chloride, (96-108) 110 mmol/L H 02/10/25 Carbon Dioxide, (22-29) 29 mmol/L 02/10/25 BUN, (9-16) 31 mg/dL H 02/10/25 Creatinine, (0.5-1.4) 1.33 mg/dL 02/10/25 Calcium, (8.4-10.2) 8.9 mg/dL 02/10/25 Assessment & Plan Assessment & Plan (1) HTN (hypertension): Code(s): I10 - Essential (primary) hypertension Category: Medical Plan 1. 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 2. Hypertension As above 3. Coronary Artery Disease - Continue follow-up with glass etcher helper for management of coronary artery disease and stent monitoring. Orders: Orders Basic Metabolic Panel 3 Weeks Kavin Tracey MD N18.9 - Chronic kidney disease, unspecified Complete Blood Count Auto Diff 3 Weeks Kavin Tracey MD N18.9 - Chronic kidney disease, unspecified Creatinine Urine 3 Weeks Kavin Tracey MD N18.9 - Chronic kidney disease, unspecified UA and rflx microscopic 3 Weeks Kavin Tracey MD N18.9 - Chronic kidney disease, unspecified Total Protein Urine Random 3 Weeks Kavin Tracey MD N18.9 - Chronic kidney disease, unspecified Medications: Changed From losartan 100 mg PO DAILY 90 tabs 3RF To losartan 50 mg PO DAILY Skyla Oliver MD Patient Instructions: - Drink plenty of fluids to stay hydrated and support kidney function. - Monitor your blood pressure regularly and report any significant changes to your healthcare provider. - Follow up with your glass etcher helper as scheduled for heart health management. - Use a pill cutter to adjust your losartan dosage as discussed. Coding Level of Care Code New Pt Level 4 (20821) Diagnoses HTN (hypertension) I10
[2025-03-21 10:23] VITALS: BP 106/60; BP 120/60
--- OUTSIDE RECORDS SUMMARY | 2025-03-21 11:25 | XMS_ITS | Encounter Summary ---
Author Organization [facility] Address [address] [place] [address] Phone Care Team Providers Care Career Development Manager Name Role Phone Skyla Salomon MD Primary Care Provider Encounter Details Date Type Department Care Team (Late st Contact Info) Description 03/21/2025 Orders Only [facility] [address], [address] [place], [place] [id number] [place] [address] Social History Tobacco Use Types Packs/Day Years Used Date Smoking Tobacco: Former Cigarettes 1967 Smokeless Tobacco: Never Alcohol Use Standard Drinks/Week [...] on file documented as of this encounter Plan of Treatment Upcoming Encounters Date Type Department Care Team (Late st Contact Info) Description 08/08/2025 11:20 AM EDT Office Visit [facility] [address] [place] [address] [address]rd Floor, [address] [place] [id number] Charlie Hill MD [address] [place] [address], [address] [address] documented as of this encounter Procedures Procedure Name Priority Date/Time Associated Diagnosis Comments OUTSIDE LAB Routine 03/21/2025 11:05 AM EST documented in this encounter Results * Outside Lab (Non-[facility]) (03/21/2025 11:05 AM EST) us Historical Provider LAB BLOOD BKR ORDERABLES Final Result documented in this encounter Visit Diagnoses Not on filedocumented in this encounter Care Teams Career Development Manager Relationship Specialty Start Date End Date Skyla Salomon MD PCP - General Internal Medicine 06/17/22 documented as of this encounter Additional Source Comments The information contained in this document represents components of the legal health record. It is not the complete legal health record.[facility]
--- OUTSIDE RECORDS SUMMARY | 2025-03-21 11:25 | XMS_ITS | Encounter Summary ---
Author Organization [facility] Address [address] [place] [address] Phone Care Team Providers Care International Accountant Name Role Phone Skyla Salomon MD Primary Care Provider Encounter Details Date Type Department Care Team (Late st Contact Info) Description 11/07/2024 Procedure Pass [facility] [address] [place] [address] Social History Tobacco Use Types Packs/Day Years Used Date Smoking Tobacco: Former Cigarettes 1 558 - 9174 Smokeless Tobacco: Never Alcohol Use Standard Drinks/Week [...] Risk Indicated 11/07/2024 6:09 PM EDT Erika Zuñiga, FRANCIS * [place] Suicide Severity Rating Scale (Screener/Recent Self-Report) Question [...] Description 08/08/2025 11:20 AM EDT Office Visit [facility] [address], [address] [place] [address] Charlie Hill MD [address] [place] [address], [address] [place] [address] [email or web address] documented as of this encounter Visit Diagnoses Not on filedocumented in this encounter Care Teams International Accountant Relationship Specialty Start Date End Date Skyla Salomon MD PCP - General Internal Medicine 06/17/22 documented as of this encounter Additional Source Comments The information contained in this document represents components of the legal health record. It is not the complete legal health record.[facility]
--- OUTSIDE RECORDS SUMMARY | 2025-03-21 11:26 | XMS_ITS | Clinical Summary ---
Author Organization [facility] Address [address] [place] [address] Phone Care Team Providers Care Biosolids Management Technician Name Role Phone Skyla Salomon MD Primary Care Provider [phone] Allergies Active Allergy Reactions Criticality Noted Date Comments Sulfamethoxazole-Trimethoprim Rash Low 2016 Clopidogrel Rash Low 11/21/2016 Sulfa (Sulfonamide Antibiotics) 11/12 Medications omeprazole (PRILOSEC) 10 MG capsule Take 20 mg by mouth as needed. 1 capsule Orally Once a day Active SILDENAFIL CITRATE (VIAGRA ORAL) as needed Active Medication-Jagjit e Text multivitamin Active carvedilol (COREG) 6.25 MG [...] Take 1-2 tablets as needed Active vitamins A,C,E-zinc-endoscopic technician per (PRESERVISION AREDS) [id number] qiws-kj-nazi Cap Take 1 capsule by mouth 2 (two) times a day with meals. Active losartan (COZAAR) 100 MG tabletIndicati ons:Medication refill Take 1 tablet (100 mg total) by mouth daily. 90 tablet 3 0 Active rosuvastatin (CRESTOR) 10 MG tablet Take 20 mg by mouth. 1 Active tamsulosin (FLOMAX) 0.4 mg Cap Take 0.8 mg by mouth. 1 Active lutein 20 mg Tab TAKE 20MG BY MOUTH ONCE DAILY 1 Active metroNIDAZOLE (METROGEL) 1 % gel Apply topically as needed. Active clotrimazole-b etamethasone (LOTRISONE) cream Apply topically 2 (two) times a day. Active Medication-Jagjit e Text Vit a 2400mcg Active Medication-Jagjit e Text Vit c 500 mg Active buPROPion (WELLBUTRIN XL) 150 MG ER 24 hr tablet Take 150 mg by mouth every morning. 5 Active ticagrelor (BRILINTA) 90 mg Tab Take 90 mg by mouth 2 (two) times a day. Active zolpidem (AMBIEN) 5 MG tablet Take 5 mg by mouth nightly at bedtime as needed for sleep. Active azelaic acid (AZELEX) 20 % cream Apply topically 2 (two) times a day. After skin is thoroughly washed and patted dry, gently but thoroughly massage a thin film of azelaic acid cream into the affected area twice daily, in the morning and evening. Active amLODIPine (NORVASC) 5 MG tablet Take 5 mg by mouth daily. 025 Discontin ued(No longer taking) Active Problems Problem Noted Date Diagnosed Date Nonrheumatic mitral valve regurgitation 11/29/19 25 Assessment & Plan (2025 8:23 AM EDT): Most recent echo reveals mild MR. Continue serial echoes. Asymptomatic and euvolemic today. Assessment & Plan (01/28/2025 11:16 AM EDT): Most recent echo reveals mild MR. Continue serial echoes. Assessment & Plan (11/28/2024 9:55 AM EDT): Most recent echo reveals mild MR. Continue serial echoes. Atypical chest pain 11/07/2024 Chest pain 11/07/2024 Assessment & Plan (2025 8:22 AM EDT): Resolved. See above. Assessment & Plan (11/08/2024 1:15 PM EDT): [...] consult Essential hypertension 11/22/2017 Assessment & Plan (2025 8:23 AM EDT): BPs very well-controlled currently. We added amlodipine earlier this year due to hypertension, he then became quite hypotensive so we stopped CCB. Will currently continue losartan 100 mg, carvedilol 6.25 mg twice daily. He is trying to more appropriately hydrate. Continue to monitor. Labs up-to-date. He states his PCP has referred him to a herb doctor to establish care- most recent renal function that I see is unremarkable. Continue to follow. Assessment & Plan (01/28/2025 11:15 AM EDT): BPs very well-controlled currently. We added amlodipine earlier this year due to hypertension, he then became quite hypotensive so we stopped CCB. Will currently continue losartan 100 mg, carvedilol 6.25 mg twice daily. He is trying to more appropriately hydrate. Continue to monitor. Labs up-to-date. Assessment & Plan (11/28/2024 9:52 AM EDT): [...] 01/2025 which is already scheduled with his paraeducator. Asked patient to follow-up sooner for any [...] mg daily. Hyperlipidemia 11/22/2017 Assessment & Plan (2025 8:22 AM EDT): LDL goal less than 55. LDL 31, at goal on rosuvastatin 20 mg daily. Tolerating well. His LFTs did bump slightly in December, he states he has had repeat labs through his PCP office as well as a liver ultrasound which was unremarkable through their office. Recommended we continue to follow his LFTs regularly. Assessment & Plan (01/28/2025 11:16 AM EDT): LDL goal less than 70. LDL 31, at goal on rosuvastatin 20 mg daily. 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 His stress testing has been normal in the past. More recently had placement of DANIELA to RCA ISR 11/11/2024 at [facility]. Recommendation was to consider staged PCI for the additional lesions pending renal function and symptoms after stenting the RCA again. He is now status post 1 DANIELA to the mid LAD on 12/31/2024. Recommended medical therapy for his diffuse disease in the circumflex. We went over his cath report. Answered patient's questions. Chest pain has completely resolved. He defers cardiac rehab at this time due to exercising on his own as well as financial limitations. He can let me know if he changes his mind. Continue aspirin lifelong. Ticagrelor 90 mg twice daily for at least 12 months post PCI. Continue statin, ARB, beta-los. EF is preserved. Has not used any sublingual nitro but he carries this with him. Continue to optimize cardiovascular risk factors. Follow-up next year as planned with his paraeducator. Sooner should any symptoms change at which time we can consider uptitrating antianginal or further evaluation. 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 His stress testing has been normal in the past. More recently had placement of DANIELA to RCA ISR 11/11/2024 at [facility]. Recommendation was to consider staged PCI for the additional lesions pending renal function and symptoms after stenting the RCA again. He is now status post 1 DANIELA to the mid LAD on 12/31/2024. Recommended medical therapy for his diffuse disease in the circumflex. We went over his cath report today. Answered patient's questions. Patient had 1 atypical episode of chest pressure yesterday, otherwise has been asymptomatic since his most recent stent. Did refer him to [facility] cardiac rehab today. Continue aspirin lifelong. Ticagrelor 90 mg twice daily for at least 12 months post PCI. Continue statin, ARB, beta-los. EF is preserved. Has not used any sublingual nitro but he carries this with him. Continue to optimize cardiovascular risk factors. Follow-up in 3 months with me in 6 months with his paraeducator. Sooner should any symptoms change at which time we can consider uptitrating antianginal Assessment & Plan (11/28/2024 9:56 AM EDT): History of inferior MS 2015 status post bare-metal stent to his RCA. His stress testing has been normal in the past. More recently had placement of DANIELA to RCA ISR 11/11/2024 at [facility]. Recommendation was to consider staged PCI [...] so we will schedule patient with his paraeducator in 2 weeks for cath talk to [...] of hypotension, CAD, HLD, HX of inferior MS status post bare-metal stent placed to RCA in 2014 to the right coronary artery. Followed by Dr. 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 He continues to be asymptomatic at this time. He has not needed to use nitroglycerin. He did have a emergency room visit at [facility] in the distant past where he was [...] Patient has a history of an inferior MS and stenting to his RCA in 2014. [...] EDT): His a history of an inferior MS and stenting to his RCA in 2014. He has a small Q wave on his EKG but no real evidence of scar or ischemia on a nuclear stress test. He is preserved LV function. He should remain on aspirin lifelong and we will continue to optimize his cardiac risk factors. Encounters Date Type Department Care Team Description 03/21/2025 Orders Only [facility] [address], [address] [place] [address] Provider, MD Rhys 2025 8:00 AM EDT Office Visit [facility] [address], [address] [place] [address] Zohra Black PA-C Coronary artery disease involving [place] coronary artery of [place] heart without angina pectoris (Primary Dx); Essential hypertension; Pure hypercholesterolemia; Chest pain, unspecified type; Nonrheumatic mitral valve regurgitation 01/28/2025 10:30 AM EDT Office Visit [facility] [address], [address] [place] [address] Zohra Black PA-C Atherosclerosis of [place] coronary artery of [place] heart without angina pectoris (Primary Dx); Coronary artery disease involving [place] coronary artery of [place] heart without angina pectoris; Essential hypertension; Pure hypercholesterolemia; Nonrheumatic mitral valve regurgitation from Last 3 Months Immunizations Immunization Administration Dates Next Due Tdap 09/19/2019 Family History Medical History Relation Comments Stroke Father Cancer Mother Heart attack Mother Relation Status Comments Father Mother Social History Tobacco Use Types Packs/Day Years Used Date Smoking Tobacco: Former Cigarettes 1 1967 Smokeless Tobacco: Never Tobacco Cessation:Counseling Given: [...] Sign Reading Time Taken Comments Blood Pressure 130/80 2025 7:42 AM EDT Pulse 64 2025 7:42 AM EDT Temperature 36.7 C (98.1 F) 11/09/2024 2:30 PM EDT Respiratory Rate 16 11/09/2024 2:30 PM EDT Oxygen Saturation 97% 2025 7:42 AM EDT Inhaled Oxygen Concentration - - Weight 58.5 kg (129 lb) 2025 7:42 AM EDT Height 165.1 cm (5' 5 ) 2025 7:42 AM EDT Body Mass Index 21.47 2025 7:42 AM EDT Plan of Treatment Upcoming Encounters Date Type Department Care Team (Late st Contact Info) Description 08/08/2025 11:20 AM EDT Office Visit [facility] [address] [place] [address] [address] [facility], [address] [place] [id number] Charlie Hill MD [address] [place] [id number] [email or web address] Health Maintenance Due Date Last Done Comments DEPRESSION SCREENING 1957 ZOSTER VACCINES (1 of 2) 1994 RSV VACCINE (1 - 1-dose 75+ series) 2019 INFLUENZA VACCINE (#1) 2024 , 03/08/2018, 04/24/2017, Additional history exists COVID-19 VACCINE (3 - season) 2025 07/11/2020, 06/18/2020 BLOOD PRESSURE 09/11/2025 2025 CREATININE LEVEL 12/18/2025 12/18/2024, 11/2024, 11/08/2024, Additional history exists LIPID PANEL 12/18/2025 12/18/2024, 10/14, 11/18/2020, Additional history exists POTASSIUM LEVEL 12/18/2025 [...] on patient's age to complete this topic IPV VACCINES Aged Out No longer eligi ble [...] OUTSIDE LAB Routine 03/21/2025 11:05 AM EST LIPID PANEL Routine 12/18/2024 8:16 AM EDT Pure hypercholesterolemia COMPREHENSIVE METABOLIC PANEL (CMP) Routine 12/18/2024 8:16 AM EDT Pure hypercholesterolemia Coronary artery disease involving [place] coronary artery of [place] heart without angina pectoris Essential hypertension Chest pain, unspecified type from Last 3 Months or Most Recently Relevant to Health Maintenance Results * Outside Lab (Non-MGB) (03/21/2025 11:05 AM EST) us Historical Provider LAB BLOOD BKR ORDERABLES Final Result * (ABNORMAL) Comprehensive metabolic panel (12/18/2024 8:16 AM EDT) SODIUM 140 133 - 146 mmol/L [facility] POTASSIUM 4.2 3.3 - 5.1 mmol/L [facility] Comment:Specimen slightly he molyzed, result may be falsely elevated. CHLORIDE 107 96 - 108 mmol/L [facility] CO2 22 21 - 35 mmol/L [facility] BUN 22(H) 6 - 19 mg/dL [facility] CREATININE 1.20 0.5 - 1.5 mg/dL [facility] GLUCOSE 88 70 - 99 mg/dL [facility] ALBUMIN 4.0 3.9 - 4.8 g/dL [facility] TOTAL PROTEIN 6.7 6.5 - 8.0 g/dL [facility] CALCIUM 9.5 8.4 - 10.3 mg/dL [facility] ALKALINE PHOSPHATASE 91 39 - 117 U/L [facility] TOTAL BILIRUBIN 0.7 0.0 - 1.2 mg/dL [facility] AST 41(H) 0 - 37 U/L [facility] ALT 52(H) 0 - 40 U/L [facility] GLOBULIN 2.7 1 - 4.8 g/dL [facility] EGFR 61 >59 mL/min/1.7 3m2 [facility] Comment:Estimated glomerular filtration rate calculated using the CKD-EPI refit equation. ANION GAP 15 10 - 20 mmol/L [facility] Blood 12/18/2024 8:16 AM EDT 12/18/2024 8:18 AM EDT us Charlie Hill MD LAB BLOOD BKR ORDERABLES Fi nal Result [facility] [address] [place] [address] * (ABNORMAL) Lipid panel (12/18/2024 8:16 AM EDT) HDL 47 mg/dL [facility] Comment: Interpretation <40 mg/dL: Low HDL cholesterol (major risk factor for CHD) Greater than or equal to 60 mg/dL: High HDL cholesterol ( negative risk factor for CHD) HDL - cholesterol is affected by a number of factors, e.g. smoking, excerise, hormones, sex and age. CHOLESTEROL 95 0 - 240 mg/dL [facility] TRIGLYCERIDES 85 30 - 160 mg/dL [facility] LDL 31(L) 50 - 129 mg/dL [facility] Comment: LDL levels in terms of risk for coronary heart disease: <100 mg/dL: Optimal 100-129 mg/dL: Near or above optimal 130-159 mg/dL: Borderline high 160-189 mg/dL: High >190 mg/dL: Very High CARDIAC RISK RATIO 2.0(L) 3.4 - 5.0 [facility] Blood 12/18/2024 8:16 AM EDT 12/18/2024 8:18 AM EDT us Charlie Hill MD LAB BLOOD BKR ORDERABLES Fi nal Result [address] [address] from Last 3 Months or Most Recently Relevant to Health Maintenance Insurance [employer] H[employer] REPLACEMENT [employer] REPLACEMENT MEDICARE HMO RE[place]AC[place] [address] [place] [address] MEDICARE HMO REPLACEMENT MEDICARE HMO REPLACEMENT MEDICARE HMO REPLACEMENT MEDICARE HMO REPLACEMENT MEDICARE HMO REPLACEMENT Advance Directives For more information, please contact: [phone] (9AM - 5PM [facility], Monday-Monday) * Full Code (Latest Code Status on File) Date Activated Date Inactivated Comments 11/07/2024 9:30 PM Question Answer Comments Code Status Confirmed With: Patient Care Teams Biosolids Management Technician Relationship Specialty Start Date End Date Skyla Salomon MD PCP - General Internal Medicine 06/17/22 Additional Source Comments The information contained in this document represents components of the legal health record. It is not the complete legal health record.[facility]
== END 2025-03-21 10:24 | disposition home or self-care (01) ==
LOC: HO.HKA 09:53
PROVIDERS: PCP Internal Medicine; Visit Provider Internal Medicine Hypertension Specialist
DX: I10 Essential (primary) hypertension (principal)
CPT/HCPCS: 99204

== ENCOUNTER 2025-04-01 10:47 | Outpatient (REF) | payer OTHER, SELFPAY ==
[2025-04-01 11:00] LABS: MANUAL DIFF FLAG NO
[2025-04-01 11:42] LABS: Hematocrit 40.5 % (42.0-52.0); Hemoglobin 13.4 g/dl (14.0-18.0); Imm Gran Abs Auto 0.01 X10*3/uL (0.00-0.03); Imm Gran Pct Auto 0.2 % (0.0-0.4); Lymphocytes Absolute Auto 1.0 X10*3/uL (1.2-4.9); Mean Corpuscular HGB Conc 33.1 g/dl (31.0-36.0); Mean Corpuscular Hemoglobin 33.3 pg (27.0-33.0); Mean Corpuscular Volume 100.5 fL (80.0-98.0); NRBC Abs Auto 0.000 X10*3/uL (0.0-0.012); NRBC Pct Auto 0.0 /100WBC (0.0-0.2); Platelet Count 171 X10*3/uL (160-400); Red Blood Count 4.03 X10*6/uL (4.60-5.80); White Blood Count 5.2 X10*3/uL (4.8-10.8)
[2025-04-01 11:57] LABS: Appearance Urine Clear; Glucose Urine UA Negative (Negative); PH 6.5 (5.0-9.0); Specific Gravity - Urine 1.020 (1.005-1.025)
[2025-04-01 12:45] LABS: Anion Gap 11 (12-20); Blood Urea Nitrogen 27 mg/dL (9-16); Calcium 9.0 mg/dL (8.4-10.2); Carbon Dioxide 27 mmol/L (22-29); Chloride 108 mmol/L (96-108); Estimated Glomerular Filt Rate 50; Potassium 4.4 mmol/L (3.3-5.1); Sodium 142 mmol/L (135-145)
[2025-04-01 12:47] LABS: Total Protein Urine Random 21 mg/dL (<12)
== END 2025-04-01 10:48 | disposition home or self-care (01) ==
LOC: HO.LAB 10:47
PROVIDERS: PCP Internal Medicine; Visit Provider Internal Medicine Hypertension Specialist
DX: N18.9 Chronic kidney disease, unspecified (principal)
CPT/HCPCS: 36415; 80048; 81003; 82570; 84156; 85025

== ENCOUNTER 2025-04-18 09:40 | Outpatient (AMB) | payer OTHER, SELFPAY ==
[2025-04-18 09:44] VITALS: BP 160/84; PULSE 58; O2SAT 98; BMI 21.0
--- NOTE | 2025-04-18 09:44 | HO.NEPHOV_ITS ---
Vital Signs 04/18/25 09:44 04/18/25 09:59 Height 5 ft 6 in Weight 130 lb BMI 21.0 BP 160/84 H 130/70 Blood Pressure Location Rt brachial Rt brachial Position Sitting Sitting Pulse 58 Pulse Source Pulse Oximeter Pulse Oximetry (%) 98 Oxygen Delivery Method Room Air Intake Visit Reasons: 4 wks f/u w/ labs Vice President Financial Required: No Accompanied by: Spouse Allergies clopidogrel (From PLAVIX) Allergy (Intermediate, Verified 04/18/25 09:46) RASH sulfamethoxazole (From BACTRIM) Allergy (Intermediate, Verified 04/18/25 09:46) RASH trimethoprim (From BACTRIM) Allergy (Intermediate, Verified 04/18/25 09:46) RASH Medication List - Last Reconciled 04/18/25 by Kavin Tracey MD amlodipine 5 mg PO DAILY ascorbic acid (vitamin C) 500 mg PO DAILY aspirin 81 mg PO DAILY azelaic acid 20% (Azelex) 1 appl topical BID carvedilol 6.25 mg PO BID clotrimazole 1% 1 appl topical QAM AND QHS hydroxyzine HCl 25 mg PO BID losartan 50 mg (1/2 x 100 mg) PO DAILY lutein 20 mg PO DAILY metronidazole 0.75% 1 appl topical DAILY multivitamin 1 tab PO DAILY nitroglycerin 0.4 mg sublingual Q5M PRN omeprazole 20 mg PO DAILY rosuvastatin 20 mg PO DAILY sildenafil 100 mg PO DAILY PRN tamsulosin 0.8 mg (2 x 0.4 mg) PO DAILY ticagrelor (Brilinta) 90 mg PO BID vit C,E,Zn,Wq-fsrci2-uau-zeax 250-2.5-0.5 mg 2.5 caps PO DAILY [vitamin A 2,400 mcg PO DAILY] zolpidem 5 mg PO BEDTIME HPI Comments Details: The patient is an 80-year-old male refered for CKD Baselien Cr was 1.07 in Mar 2024 The kidney function has been fluctuating for quite a while, with a recent GFR of 58 over the last four months. The creatinine levels have shown improvement from 1.46 in October to 1.33 in January, although not yet normalized. The patient has a history of coronary artery disease, having undergone stent placement following episodes of chest pain in October 2024 and subsequent months. Three blockages were identified, with two stents placed and the third left untreated. The patient has a history of hypertension, which is currently managed with medic ations including amlodipine, carvedilol, and losartan. Blood pressure readings have been controlled, although there is a noted drop upon standing, and occasional lightheadedness The patient has a history of smoking, having quit 50 years ago after smoking half a pack daily for 15 years. The patient also has age-related macular degeneration and has recently had two stents placed in the heart. 04/18/25 History of Present Illness The patient is an 80 year old male presenting for a follow-up visit for management of hypertension and chronic kidney disease. His blood pressure was low at the last visit in March, which prompted a decrease in his losartan dose by half, to 50 mg. His other blood pressure medications include amlodipine 5 mg and carvedilol 6.25 mg. The patient has a history of stage 3A chronic kidney disease, which has been ongoing for a couple of years and has been stable for the last six months. He reports a history of not drinking a lot of fluids and believes he is often dehydrated, which his primary care physician also suspects as the cause for his kidney issues. An abdominal ultrasound from January was unremarkable, showing a benign cyst on the right kidney and a clear bladder. Recent urine tests showed no protein or blood. The patient reports significant nocturia, waking to urinate every hour. He is prescribed tamsulosin by his urologist, Dr. Walter Zepeda, but feels it provides no benefit and reports that his urologist suspects an overactive bladder. He avoids caffeine before bed. [facility] Medical History (Updated 03/21/25 @ 10:29 by Kavin Tracey MD) [place] (acute kidney injury) CAD S/P percutaneous coronary angioplasty Myocardial infarction Sinusitis Stable angina Macular degeneration PUD (peptic ulcer disease) History of BPH GERD (gastroesophageal reflux disease) GIB (gastrointestinal bleeding) Ex-cigarette smoker Diverticulitis of sigmoid colon Coronary atherosclerosis of [place] coronary artery H/O degenerative disc disease Benign essential hypertension Surgical History History of coronary artery stent placement (~01/2025) H/O tooth extraction Hx of colonoscopy Family History Mother Lung cancer Smoker Father Stroke Smoker Sister Cancer, metastatic Maternal Grandmother Diabetes Social History Household Members: Spouse Housing: House Are you a primary daytime caregiver to a significant other at home: No (for each other) Do you presently have visiting nurse or other home services: No Alcohol intake: never Patient Tobacco Use Status: Former Tobacco user Cigarette Packs Per Day: 1 Years Smoked: 10 e-Cigarette/Vaping Use: Never Used Second Hand Smoke Exposure: No service: Yes Current occupational status: retired Cognitive needs: No Hearing needs: No Vision needs: Yes (macular degeneration) Physical Exam Vital Signs: Last Vital Signs Pulse 58 04/18/25 09:44 BP 130/70 04/18/25 09:59 Pulse Ox 98 04/18/25 09:44 Oxygen Delivery Method Room Air 04/18/25 09:44 BMI result Body Mass Index 21.0 Comfortable Neck supple no JVD. Lungs entry equal no rales. Heart S1-S2 heard no gallop or rub. Abdomen soft nontender. Neuro alert awake oriented. No asterixis. Extremities no edema. Results Reviewed Nephrology Results: Hgb, (14.0-18.0) 13.4 g/dl L 04/01/25 WBC, (4.8-10.8) 5.2 X10*3/uL 04/01/25 Plt Count, (160-400) 171 X10*3/uL 04/01/25 Sodium, (135-145) 142 mmol/L 04/01/25 Potassium, (3.3-5.1) 4.4 mmol/L 04/01/25 Chloride, (96-108) 108 mmol/L 04/01/25 Carbon Dioxide, (22-29) 27 mmol/L 04/01/25 BUN, (9-16) 27 mg/dL H 04/01/25 Creatinine, (0.5-1.4) 1.37 mg/dL 04/01/25 Calcium, (8.4-10.2) 9.0 mg/dL 04/01/25 Urine Protein, (Neg-Trace) Trace mg/dL 04/01/25 Urine Creatinine 121.11 mg/dL 04/01/25 Assessment & Plan Assessment & Plan (1) HTN (hypertension): Code(s): I10 - Essential (primary) hypertension Category: Medical Plan 1. 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 2. Hypertension As above 3. Coronary Artery Disease - Continue follow-up with roll on worker for management of coronary artery disease and stent monitoring. Orders: Orders Basic Metabolic Panel 4 Months I10 - Essential (primary) hypertension, N18.9 - Chronic kidney disease, unspecified Coding Level of Care Code Est Pt Level 4 (63141) Diagnoses HTN (hypertension) I10
[2025-04-18 09:59] VITALS: BP 130/70
== END 2025-04-18 10:06 | disposition home or self-care (01) ==
LOC: HO.HKA 09:41
PROVIDERS: PCP Internal Medicine; Visit Provider Internal Medicine Hypertension Specialist
DX: I10 Essential (primary) hypertension (principal)
CPT/HCPCS: 99214

== ENCOUNTER 2025-04-28 08:58 | Outpatient (AMB) | payer OTHER, SELFPAY ==
--- NOTE | 2025-04-28 09:08 | A.OFFPC_ITS ---
Vital Signs 04/28/25 09:10 04/28/25 09:20 BMI Reason not done Patient refused/unable BP 152/74 H 118/68 Blood Pressure Location Rt brachial Rt brachial Position Sitting Sitting Respiration 14 Pulse 57 Pulse Source Pulse Oximeter Pulse Oximetry (%) 98 Oxygen Delivery Method Room Air Intake Visit Reasons: Follow up 6mos Intake Note: Six month follow up Allergies clopidogrel (From PLAVIX) Allergy (Intermediate, Verified 04/28/25 09:11) RASH sulfamethoxazole (From BACTRIM) Allergy (Intermediate, Verified 04/28/25 09:11) RASH trimethoprim (From BACTRIM) Allergy (Intermediate, Verified 04/28/25 09:11) RASH Medication List - Last Reconciled 04/28/25 by Skyla Oliver MD amlodipine 5 mg PO DAILY ascorbic acid (vitamin C) 500 mg PO DAILY aspirin 81 mg PO DAILY azelaic acid 20% (Azelex) 1 appl topical BID carvedilol 6.25 mg PO BID clotrimazole 1% 1 appl topical QAM AND QHS hydroxyzine HCl 25 mg PO BID losartan 100 mg PO DAILY lutein 20 mg PO DAILY metronidazole 0.75% 1 appl topical DAILY multivitamin 1 tab PO DAILY nitroglycerin 0.4 mg sublingual Q5M PRN omeprazole 20 mg PO DAILY rosuvastatin 20 mg PO DAILY sildenafil (Viagra) PO tamsulosin 0.8 mg (2 x 0.4 mg) PO DAILY [vitamin A 2,400 mcg PO DAILY] vitamins A,C,[id number] (PreserVision AREDS) Bauch and Lomb. 3 tablets daily zolpidem 5 mg PO BEDTIME Tobacco use date assessed: 04/28/25 Fall risk assessment: No Falls in past year Last assessed Fall Risk: 04/28/25 Dental Screening Dental Screen Date: 01/06/25 HPI HPI Comments History of Present Illness Details The patient is an 80 year old male with a past medical history of CAD s/p status post GA with PCI with stent to RCA 1998 & 2008, diabetes, htn, hld, GERD, PUD, low back pain, anxiety, PIN for follow up CV: On crestor 10mg daily, aspirin 81mg daily, brillinta, losartan, coreg 6.25mg twice daily. Blood pressure is well controlled. Follows with [facility]. stent placement summer 2024 now on brilinta x one year with ASA. GERD: Stable on omeprazole BPH: On flomax 0.8mg daily. Viagra 100mg daily. Insomnia: Doing well on prn zolpidem. has advancing dementia. Macular degeneration-Goes every four weeks for shots Heme/onc: Had c/o easy bruising which predated his stent placement and the addition of brilinta. Had biopsy and saw hematology-ressuring Some hearing loss-[facility] HPI PHYSICAL EXAM: GENERAL: Alert and oriented x 3. NAD EYES: EOMI. Anicteric. HENT: Moist mucous membranes. No scleral icterus. No cervical lymphadenopathy. LUNGS: Clear to auscultation bilaterally. CARDIOVASCULAR: Regular rate and rhythm. No murmur. No JVD. ABDOMEN: Soft, non-tender +bs EXTREMITIES: Warm, dry SKIN: No rashes. Scattered senile purpura NEUROLOGIC: No focal neurological deficits. CN II-XII grossly intact PSYCHIATRIC: Cooperative. Appropriate mood and affect [facility] Medical History (Updated 05/01/25 @ 13:58 by Skyla Oliver MD) [place] (acute kidney injury) CAD S/P percutaneous coronary angioplasty Myocardial infarction Sinusitis Stable angina Macular degeneration PUD (peptic ulcer disease) History of BPH GERD (gastroesophageal reflux disease) GIB (gastrointestinal bleeding) Ex-cigarette smoker Diverticulitis of sigmoid colon Coronary atherosclerosis of [place] coronary artery H/O degenerative disc disease Benign essential hypertension Surgical History History of coronary artery stent placement (~01/2025) H/O tooth extraction Hx of colonoscopy Family History Mother Lung cancer Smoker Father Stroke Smoker Sister Cancer, metastatic Maternal Grandmother Diabetes Social History (Updated 04/28/25 @ 09:10 by Genoveva Goss CMA) Household Members: Spouse Housing: House Are you a primary medical care evaluation specialist to a significant other at home: No (for each other) Do you presently have visiting nurse or other home services: No Alcohol intake: never Patient Tobacco Use Status: Former Tobacco user Cigarette Packs Per Day: 1 Years Smoked: 10 e-Cigarette/Vaping Use: Never Used Second Hand Smoke Exposure: No service: Yes Current occupational status: retired Cognitive needs: No Hearing needs: No Vision needs: Yes (macular degeneration) Questionnaire Thrive Questionnaire Date Thrive assessed: 01/06/25 I am a: Patient What is your living situation today?: I have a steady place to live Within the past 12 months, did the food you bought not last and you didn't have the money to get more?: Never true Within the past 12 months, did you worry whether your food would run out before you got money to buy more?: Never true Do you have trouble paying for medicines?: No Do you have trouble getting transportation to medical appointments?: No Do you have trouble paying your heating and electricity bill?: No Do you have trouble taking care of your child, family member or friend?: No Do you have trouble with day-to-day activities such as bathing, preparing meals, shopping, managing finances, etc.?: No Are you currently unemployed and looking for a job?: No Are you interested in more education?: Yes Please select the resources that you would like help with: None Currently or been in a relationship where the following occur: No concerns rep orted THRIVE Score: 0 AUDIT C Alcohol Use Questionnaire (AUDIT-C) 1. How often do you have a drink containing alcohol?: Never 3. How often do you have six or more drinks on one occasion?: Never Total Score: 0 Physical exam (Primary Care) Vital Signs: Last Vital Signs Pulse 57 04/28/25 09:10 Resp 14 04/28/25 09:10 BP 118/68 04/28/25 09:20 Pulse Ox 98 04/28/25 09:10 Oxygen Delivery Method Room Air 04/28/25 09:10 Tobacco/Smoking Status: Tobacco use Status Tobacco use date assessed 04/28/25 04/28/25 09:18 Patient Tobacco Use Status Former Tobacco user 04/28/25 09:18 e-Cigarette/Vaping Use Never Used 04/28/25 09:18 Thrive Assessment: Date of Thrive Assessment Date Thrive assessed 01/06/25 04/28/25 09:18 Currently or been in a relationship where the following occur: No concerns reported Coding Level of Care Code Add On Preventative Visit Only Diagnoses CAD S/P percutaneous coronary angioplasty I25.10; Z98.61 Mild episode of recurrent major depressive disorder F33.0 Depression Type: major depressive disorder Major depression recurrence: recurrent Active/Remission status: currently active Major depression episode severity: mild Gastroesophageal reflux disease, unspecified whether esophagitis present K21.9 Esophagitis presence: esophagitis presence not specified Insomnia, unspecified type G47.00 Insomnia type: unspecified Assessment & Plan Assessment & Plan (1) CAD S/P percutaneous coronary angioplasty: Code(s): I25.10 - Atherosclerotic heart disease of [place] coronary artery without angina pectoris; Z98.61 - Coronary angioplasty status Category: Medical (2) Depression: Code(s): F32.A - Depression, unspecified Category: Medical Qualifiers: Depression Type: major depressive disorder Major depression recurrence: recurrent Active/Remission status: currently active Major depression episode severity: mild Qualified Code(s): F33.0 - Major depressive disorder, recurrent, mild (3) GERD (gastroesophageal reflux disease): Code(s): K21.9 - Gastro-esophageal reflux disease without esophagitis Category: Medical Qualifiers: Esophagitis presence: esophagitis presence not specified Qualified Code(s): K21.9 - Gastro-esophageal reflux disease without esophagitis (4) Insomnia: Code(s): G47.00 - Insomnia, unspecified Category: Medical Qualifiers: Insomnia type: unspecified Qualified Code(s): G47.00 - Insomnia, unspecified Plan 80 year old presenting for follow up Interval history reviewed CAD-no chest pain. Blood pressure is controlled Depression/anxiety is stable on medications Labs ordered. Follow up 6 months Orders: Orders TSH reflex Free T4 6 Months F33.0 - Major depressive disorder, recurrent, mild, F41.9 - Anxiety disorder, unspecified, I10 - Essential (primary) hypertension, I25.10 - Atherosclerotic heart disease of [place] coronary artery without angina pectoris, R73.03 - Prediabetes, Z98.61 - Coronary angioplasty status Hemoglobin A1c 6 Months F33.0 - Major depressive disorder, recurrent, mild, F41.9 - Anxiety disorder, unspecified, I10 - Essential (primary) hypertension, I25.10 - Atherosclerotic heart disease of [place] coronary artery without angina pectoris, R73.03 - Prediabetes, Z98.61 - Coronary angioplasty status Hemoglobin A1c 04/28/25 R73.03 - Prediabetes Complete Blood Count Auto Diff 6 Months F33.0 - Major depressive disorder, recurrent, mild, F41.9 - Anxiety disorder, unspecified, I10 - Essential (primary) hypertension, I25.10 - Atherosclerotic heart disease of [place] coronary artery without angina pectoris, R73.03 - Prediabetes, Z98.61 - Coronary angioplasty status Comprehensive Met. Panel 6 Months F33.0 - Major depressive disorder, recurrent, mild, F41.9 - Anxiety disorder, unspecified, I10 - Essential (primary) hypertension, I25.10 - Atherosclerotic heart disease of [place] coronary artery without angina pectoris, R73.03 - Prediabetes, Z98.61 - Coronary angioplasty status Lipid Panel 6 Months F33.0 - Major depressive disorder, recurrent, mild, F41.9 - Anxiety disorder, unspecified, I10 - Essential (primary) hypertension, I25.10 - Atherosclerotic heart disease of [place] coronary artery without angina pectoris, R73.03 - Prediabetes, Z98.61 - Coronary angioplasty status Prostate Specific Antigen 6 Months F33.0 - Major depressive disorder, recurr ent, mild, F41.9 - Anxiety disorder, unspecified, I10 - Essential (primary) hypertension, I25.10 - Atherosclerotic heart disease of [place] coronary artery without angina pectoris, R73.03 - Prediabetes, Z98.61 - Coronary angioplasty status Medications: New ascorbic acid (vitamin C) 500 mg PO DAILY 90 tabs 3RF zolpidem 5 mg PO BEDTIME 90 tabs 3RF G47.00 - Insomnia, unspecified losartan 50 mg PO DAILY 90 tabs 3RF nitroglycerin do not exceed 3 doses per episode 0.4 mg sublingual Q5M PRN 30 tabs 0RF yes Refilled carvedilol 6.25 mg PO BID 180 tabs 3RF hydroxyzine HCl 25 mg PO BID 180 tabs 3RF omeprazole 20 mg PO DAILY 90 caps 3RF amlodipine 5 mg PO DAILY 90 tabs 3RF Discontinued tamsulosin Discontinued Reason: Doctor's Order 0.8 mg (2 x 0.4 mg) PO DAILY 180 caps 3RF
[2025-04-28 09:10] VITALS: BP 152/74; PULSE 57; RESP 14; O2SAT 98
[2025-04-28 09:20] VITALS: BP 118/68
== END 2025-04-28 09:46 | disposition home or self-care (01) ==
LOC: HO.HMCFM 09:00
PROVIDERS: PCP Internal Medicine; Visit Provider Internal Medicine
DX: I25.10 Atherosclerotic heart disease of native coronary artery without angina pectoris (principal); Z98.61 Coronary angioplasty status; F33.0 Major depressive disorder, recurrent, mild; K21.9 Gastro-esophageal reflux disease without esophagitis; G47.00 Insomnia, unspecified